=== PATIENT | male | born 1955 | race American Indian/Alaskan Native ===

== ENCOUNTER 2018-09-25 02:59 | Emergency (ER) | payer OTHER, SELFPAY ==
[2018-09-25 03:53] VITALS: BP 182/110
--- NOTE | 2018-09-25 05:14 | Emergency Department Report ---
ED Male HPI - General Chief complaint: Urogenital-Male Stated complaint: CAN'T PEE Time Seen by Provider: 09/25/18 04:05 Source: patient Mode of arrival: Ambulatory Limitations: No Limitations - History of Present Illness Initial comments: Mr. Hernández is a 63-year-old male who presents with dysuria and difficulty with urination for the past day. He is able to dribble urine. However when the urine comes out, he has pain at the tip of his penis. Also has bloody urine. Currently taking ciprofloxacin. Has followed up with urologist Dr. Garrett. He has had estelle catheter removed for several weeks. He kindly request that we replace the catheter. MD Complaint: dysuria, other (difficulty with urination) -: Gradual, days(s) (1) Location: penis Radiation: none Severity: moderate Quality: burning Consistency: constant Improves with: none Worsens with: none new medication urinary retention, blood in urine, dysuria - Related Data Previous Rx's Medication Instructions Recorded Last Taken Type Lisinopril [Zestril TAB] 20 mg PO BID #60 tablet 07/04/14 Unknown Rx Metoprolol [Lopressor TAB] 12.5 mg PO BID #30 tablet 07/04/14 Unknown Rx HYDROcodone/APAP 5-325 [Denair 1 each PO Q6HR PRN #7 tablet 07/05/14 Unknown Rx 5/325] Lisinopril/Hydrochlorothiazide 1 each PO QDAY #30 tablet 07/05/14 Unknown Rx [Zestoretic 10-12.5 mg] Tamsulosin HCl [Flomax] 0.4 mg PO QDAY #15 cap.er.24h 06/24/18 Unknown Rx Ciprofloxacin HCl [Cipro] 500 mg PO BID #14 tablet 06/27/18 Unknown Rx HYDROcodone/APAP 5-325 [Denair 1 each PO Q6HR PRN #15 tablet 06/27/18 Unknown Rx 5/325] Phenazopyridine [Pyridium] 100 mg PO TID 2 Days tab 06/27/18 Unknown Rx Cephalexin [Keflex] 500 mg PO QID 10 Days #40 capsule 09/25/18 Unknown Rx Phenazopyridine [Pyridium] 200 mg PO TID 2 Days #6 tab 09/25/18 Unknown Rx Allergies Allergy/AdvReac Type Severity Reaction Status Date / Time No Known Allergies Allergy Unverified 07/03/14 05:36 ED Review of Systems ROS: Stated complaint: CAN'T PEE Other details as noted in HPI Comment: All other systems reviewed and negative Constitutional: denies: fever, malaise Respiratory: denies: cough Cardiovascular: denies: chest pain Gastrointestinal: denies: abdominal pain, nausea, vomiting Genitourinary: urgency, dysuria, frequency, hematuria ED Past Medical Hx - Past Medical History Previous Medical History?: Yes Hx Hypertension: Yes Hx Congestive Heart Failure: No Hx Diabetes: No Hx Asthma: No Hx COPD: No Additional medical history: HEPATITIS C, Enlarged prostate - Surgical History Past Surgical History?: No Hx Coronary Stent: No - Social History Smoking Status: Current Every Day Smoker Substance Use Type: Alcohol - Medications Home Medications: Home Medications Medication Instructions Recorded Confirmed Last Taken Type Lisinopril [Zestril TAB] 20 mg PO BID #60 tablet 07/04/14 Unknown Rx Metoprolol [Lopressor TAB] 12.5 mg PO BID #30 tablet 07/04/14 Unknown Rx HYDROcodone/APAP 5-325 [Denair 1 each PO Q6HR PRN #7 tablet 07/05/14 Unknown Rx 5/325] Lisinopril/Hydrochlorothiazide 1 each PO QDAY #30 tablet 07/05/14 Unknown Rx [Zestoretic 10-12.5 mg] Tamsulosin HCl [Flomax] 0.4 mg PO QDAY #15 cap.er.24h 06/24/18 Unknown Rx Ciprofloxacin HCl [Cipro] 500 mg PO BID #14 tablet 06/27/18 Unknown Rx HYDROcodone/APAP 5-325 [Denair 1 each PO Q6HR PRN #15 tablet 06/27/18 Unknown Rx 5/325] Phenazopyridine [Pyridium] 100 mg PO TID 2 Days tab 06/27/18 Unknown Rx Cephalexin [Keflex] 500 mg PO QID 10 Days #40 capsule 09/25/18 Unknown Rx Phenazopyridine [Pyridium] 200 mg PO TID 2 Days #6 tab 09/25/18 Unknown Rx ED Physical Exam - General Limitations: No Limitations General appearance: alert, in no apparent distress, other (sitting comfortably, no acute distress) - Head Head exam: Present: atraumatic, normocephalic - Eye Eye exam: Present: normal appearance - ENT ENT exam: Present: mucous membranes moist - Neck Neck exam: Present: normal inspection - Respiratory Respiratory exam: Present: normal lung sounds bilaterally. Absent: respiratory distress, wheezes, rales, rhonchi - Cardiovascular Cardiovascular Exam: Present: regular rate, normal rhythm, normal heart sounds. Absent: systolic murmur, diastolic murmur, rubs, gallop - GI/Abdominal GI/Abdominal exam: Present: soft, normal bowel sounds. Absent: distended, tenderness, guarding, rebound - Rectal Rectal exam: Present: deferred - Extremities Exam Extremities exam: Present: normal inspection - Back Exam Back exam: Present: normal inspection - Neurological Exam Neurological exam: Present: alert, oriented X3 - Psychiatric Psychiatric exam: Present: normal affect, normal mood - Skin Skin exam: Present: warm, dry, intact, normal color. Absent: rash ED Course Vital Signs 09/25/18 03:20 Temperature 98 F Pulse Rate 82 Respiratory 18 Rate Blood Pressure 182/110 O2 Sat by Pulse 99 Oximetry - Catheter Insertion (Urinary) Indications: to alleviate urinary retention Prophylactic Antibiotics Given: No Bladder Scan/US before Catherization: No Preparation: Providone-Iodine Type of Catheter Inserted: Gomez Catheter [place] Size: 16 Topical Anesthesia Used: No Patient Tolerated Procedure: no complications Complications: none Additional Comments: I was able to bypass stricture at distal penis. I easily inserted catheter without any urine flow. I was unable to easily inflate balloon. I removed gomez catheter. On exam, no suprapubic distention or tenderness. ED Medical Decision Making - Medical Decision Making Mr. Hernández presents with dysuria and frequent urination. He has a sensation that he is not completely emptying his bladder. He has been compliant with Flomax therapy. I suspect urinary tract infection. No evidence of acute urinary retention. No evidence of sepsis. With insertion of Gomez cath, no urine flow achieved. I prescribed cephalexin for the next 10 days. Encouraged follow-up with Dr. Garrett. Also prescribed Pyridium Critical care attestation.: If time is entered above; I have spent that time in minutes in the direct care of this critically ill patient, excluding procedure time. ED Disposition Clinical Impression: Dysuria, Frequent urination Disposition: TO HOME OR SELFCARE Is pt being admited?: No Does the pt Need Aspirin: No Condition: Stable Instructions: Dysuria (ED) Prescriptions: Cephalexin [Keflex] 500 mg PO QID 10 Days #40 capsule Phenazopyridine [Pyridium] 200 mg PO TID 2 Days #6 tab Referrals: CAROLINE GARRETT MD [Staff Physician] - 3-5 Days
[2018-09-25] MEDS ORDERED: KEFLEX PO ONE (05:36)
[2018-09-25] MEDS ORDERED: PYRIDIUM PO ONE (05:36)
== END 2018-09-25 05:30 | disposition home or self-care (01) ==
LOC: ED 02:59
DX: R30.0 Dysuria (principal); R35.0 Frequency of micturition
CPT/HCPCS: 51702

== ENCOUNTER 2018-09-25 15:06 | Emergency (ER) | payer OTHER, SELFPAY ==
[2018-09-25] MEDS ORDERED: CATAPRES PO ONE (16:54)
--- NOTE | 2018-09-25 16:57 | Emergency Department Report ---
ED Male HPI - General Chief complaint: Urogenital-Male Stated complaint: GROIN/ENLARGED PROSTATE/URINARY RETENTION Time Seen by Provider: 09/25/18 16:20 Source: patient Mode of arrival: Ambulatory Limitations: No Limitations - History of Present Illness Initial comments: Patient is a 63-year-old male that presents emergency room with complaints of lo wer abdominal pain and urinary retention. Patient states she hasn't pieces to p.m. Patient states all the symptoms started at 2 PM. Patient states pain is 10 out of 10. Patient states it's better with rest and worse with movement and palpation. Patient states if it was so bad and called EMS to bring him to the hospital. Patient states his seen yesterday for urinary symptoms and diagnosed with UTI and placed on antibiotics, Pyridium and Flomax. Patient states he is supposed be on blood pressure medications but he stopped them 2 years ago due to the fact he was taking garlic tabs his blood pressure appeared to be control. Patient states his doctor nonstop but he stopped them on his own. MD Complaint: groin pain, other -: Sudden Location: abdomen Severity: severe Severity scale (0 -10): 10 Quality: sharp, stabbing Improves with: rest Worsens with: palpation, movement urinary retention. denies: discharge, swelling, mass, rash, blood in urine, dysuria, fever, nausea/vomiting, incontinence - Related Data Previous Rx's Medication Instructions Recorded Last Taken Type Lisinopril [Zestril TAB] 20 mg PO BID #60 tablet 07/04/14 Unknown Rx Metoprolol [Lopressor TAB] 12.5 mg PO BID #30 tablet 07/04/14 Unknown Rx HYDROcodone/APAP 5-325 [Mendham 1 each PO Q6HR PRN #7 tablet 07/05/14 Unknown Rx 5/325] Lisinopril/Hydrochlorothiazide 1 each PO QDAY #30 tablet 07/05/14 Unknown Rx [Zestoretic 10-12.5 mg] Tamsulosin HCl [Flomax] 0.4 mg PO QDAY #15 cap.er.24h 06/24/18 Unknown Rx Ciprofloxacin HCl [Cipro] 500 mg PO BID #14 tablet 06/27/18 Unknown Rx HYDROcodone/APAP 5-325 [[place]endham 1 each PO Q6HR PRN #15 tablet 06/27/18 Unknown Rx 5/325] Phenazopyridine [Pyridium] 100 mg PO TID 2 Days tab 06/27/18 Unknown Rx Cephalexin [Keflex] 500 mg PO QID 10 Days #40 capsule 09/25/18 Unknown Rx Phenazopyridine [Pyridium] 200 mg PO TID 2 Days #6 tab 09/25/18 Unknown Rx amLODIPine [Norvasc] 10 mg PO DAILY 20 Days #20 tab 09/25/18 Unknown Rx Allergies Allergy/AdvReac Type Severity Reaction Status Date / Time No Known Allergies Allergy Unverified 07/03/14 05:36 ED Review of Systems ROS: Stated complaint: GROIN/ENLARGED PROSTATE/URINARY RETENTION Other details as noted in HPI Constitutional: denies: chills, fever Eyes: denies: eye pain, eye discharge, vision change ENT: denies: ear pain, throat pain Respiratory: denies: cough, shortness of breath, wheezing Cardiovascular: denies: chest pain, palpitations Endocrine: no symptoms reported Gastrointestinal: abdominal pain. denies: nausea, diarrhea Genitourinary: denies: urgency, dysuria Musculoskeletal: denies: back pain, joint swelling, arthralgia Skin: denies: rash, lesions Neurological: denies: headache, weakness, paresthesias Psychiatric: denies: anxiety, depression Hematological/Lymphatic: denies: easy bleeding, easy bruising ED Past Medical Hx - Past Medical History Previous Medical History?: Yes Hx Hypertension: Yes Hx Congestive Heart Failure: No Hx Diabetes: No Hx Asthma: No Hx COPD: No Additional medical history: HEPATITIS C, Enlarged prostate - Surgical History Past Surgical History?: No Hx Coronary Stent: No - Family History Family history: no significant - Social History Smoking Status: Current Every Day Smoker Substance Use Type: None - Medications Home Medications: Home Medications Medication Instructions Recorded Confirmed Last Taken Type Lisinopril [Zestril TAB] 20 mg PO BID #60 tablet 07/04/14 Unknown Rx Metoprolol [Lopressor TAB] 12.5 mg PO BID #30 tablet 07/04/14 Unknown Rx HYDROcodone/APAP 5-325 [[place]endham 1 each PO Q6HR PRN #7 tablet 07/05/14 Unknown Rx 5/325] Lisinopril/Hydrochlorothiazide 1 each PO QDAY #30 tablet 07/05/14 Unknown Rx [Zestoretic 10-12.5 mg] Tamsulosin HCl [Flomax] 0.4 mg PO QDAY #15 cap.er.24h 06/24/18 Unknown Rx Ciprofloxacin HCl [Cipro] 500 mg PO BID #14 tablet 06/27/18 Unknown Rx HYDROcodone/APAP 5-325 [[place]ham 1 each PO Q6HR PRN #15 tablet 06/27/18 Unknown Rx 5/325] Phenazopyridine [Pyridium] 100 mg PO TID 2 Days tab 06/27/18 Unknown Rx Cephalexin [Keflex] 500 mg PO QID 10 Days #40 capsule 09/25/18 Unknown Rx Phenazopyridine [Pyridium] 200 mg PO TID 2 Days #6 tab 09/25/18 Unknown Rx amLODIPine [Norvasc] 10 mg PO DAILY 20 Days #20 tab 09/25/18 Unknown Rx ED Physical Exam - General Limitations: No Limitations General appearance: alert, in no apparent distress - Head Head exam: Present: atraumatic, normocephalic - Eye Eye exam: Present: normal appearance - ENT ENT exam: Present: mucous membranes moist - Neck Neck exam: Present: normal inspection - Respiratory Respiratory exam: Present: normal lung sounds bilaterally. Absent: respiratory distress - Cardiovascular Cardiovascular Exam: Present: regular rate, normal rhythm. Absent: systolic murmur, diastolic murmur, rubs, gallop - GI/Abdominal GI/Abdominal exam: Present: soft, normal bowel sounds - Rectal Rectal exam: Present: deferred - Extremities Exam Extremities exam: Present: normal inspection - Back Exam Back exam: Present: normal inspection - Neurological Exam Neurological exam: Present: alert, oriented X3 - Psychiatric Psychiatric exam: Present: normal affect, normal mood - Skin Skin exam: Present: warm, dry, intact, normal color. Absent: rash ED Course Vital Signs 09/25/18 09/25/18 09/25/18 15:18 17:16 18:45 Temperature 97.7 F 98.2 F Pulse Rate 94 H 75 75 Respiratory 23 16 Rate Blood Pressure 218/118 176/108 Blood Pressure 218/118 148/88 [Left] O2 Sat by Pulse 98 100 Oximetry - Reevaluation(s) Reevaluation #1: Initial evaluation done. Patient already had Rizvi placed by nurse. Patient states all of his symptoms have resolved. Patient's blood pressure is significantly high. Patient states he is not on any blood pressure medications. Patient states she stopped taking them due to his blood pressure being controlled with garlic tabs. 09/25/18 16:20 Patient's blood pressure has improved. Patient is stable for discharge. Patient will leave Rizvi in place until he sees urologist. Patient given discharge instructions. Patient given Rizvi care instructions. Patient was understanding of all discharge instructions. 09/25/18 17:59 ED Medical Decision Making - Medical Decision Making Patient is a 63-year-old male that presents emergency room for urinary retention. Patient fully placed which relieved his symptoms. Patient is already on antibiotics and Pyridium from yesterday's visit to the ER. Patient instructed to continue his medications. Patient will be started on Norvasc 10 mg for his blood pressure. Patient was found the ER to have extremely high blood pressure and was given clonidine 0.2 mg which brought it down to a more tolerable reading. Patient denies pain prior to discharge. Patient stable for discharge. Patient will be discharged home. Patient will be given prescriptions. - Differential Diagnosis urinary retention. UTI. Prostate infection. BPH Critical care attestation.: If time is entered above; I have spent that time in minutes in the direct care of this critically ill patient, excluding procedure time. ED Disposition Clinical Impression: Urinary retention, Dysuria, Malignant hypertension Hypertension Qualifiers: Hypertension type: essential hypertension Qualified Code(s): I10 - Essential (primary) hypertension Disposition: TO HOME OR SELFCARE Is pt being admited?: No Does the pt Need Aspirin: No Condition: Stable Instructions: Heart Healthy Diet (ED), How to Take a Blood Pressure (ED), Rizvi Catheter Placement and Care (ED), DASH Eating Plan (ED), Low Sodium Diet (ED), Hypertension (ED), Urinary Leg Bag (GEN) Additional Instructions: Patient to follow up with primary care in 2-3 days. Patient to follow up with urologist in 2-3 days. Patient to return to the ER if condition worsens. Patient take medications as directed. Patient to continue Keflex and Pyridium and complete courses. Patient to increase water. Patient take Tylenol or ibuprofen when necessary for pain. Patient leave Rizvi in place until cleared by urologist.. Prescriptions: amLODIPine [Norvasc] 10 mg PO DAILY 20 Days #20 tab Referrals: OSMIN MONSON MD [Primary Care Provider] - 2-3 Days CAROLINE OLIVER MD [Staff Physician] - 2-3 Days Time of Disposition: 18:02
[2018-09-25 19:11] VITALS: BP 148/88
== END 2018-09-25 18:45 | disposition home or self-care (01) ==
LOC: ED 15:06
DX: R33.9 Retention of urine, unspecified (principal); I10 Essential (primary) hypertension; F17.200 Nicotine dependence, unspecified, uncomplicated; Z86.19 Personal history of other infectious and parasitic diseases
CPT/HCPCS: 51702

== ENCOUNTER 2018-09-28 08:34 | Emergency (ER) | payer OTHER, SELFPAY ==
--- NOTE | 2018-09-28 09:09 | Emergency Department Report ---
ED Dysuria HPI - HPI Chief Complaint: Urogenital-Male Stated Complaint: CATHETER PAIN Time Seen by Provider: 09/28/18 09:04 Duration: 5 Days Severity: Mild Symptoms: Dysuria: No, Frequency: No, Suprapubic Pain: No, Flank Pain: No, Fever: No, Hematuria: No, Abdominal Pain: No, Previous UTI's: Yes Other History: Patient is a pleasant 63-year-old male who comes to the ER complaining of bleeding around his Rizvi catheter. He is concerned that it is the wrong size catheter. Patient has a catheter for acute urinary retention. It sounds like patient has had this off and on due to prostate issues. He is known to Dr. Garrett. ED Review of Systems ROS: Stated complaint: CATHETER PAIN Other details as noted in HPI Comment: All other systems reviewed and negative Constitutional: denies: see HPI Eyes: denies: eye pain ENT: denies: ear pain Respiratory: denies: see HPI Cardiovascular: denies: chest pain Endocrine: denies: flushing Gastrointestinal: denies: abdominal pain, nausea, vomiting Genitourinary: as per HPI, other (see HPI) Musculoskeletal: denies: back pain Skin: denies: rash Neurological: denies: headache Psychiatric: denies: anxiety Hematological/Lymphatic: denies: easy bleeding ED Past Medical Hx - Past Medical History Hx Hypertension: Yes Hx Congestive Heart Failure: No Hx Diabetes: No Hx Asthma: No Hx COPD: No Additional medical history: HEPATITIS C, Enlarged prostate - Surgical History Hx Coronary Stent: No - Social History Smoking Status: Current Every Day Smoker Substance Use Type: None - Medications Home Medications: Home Medications Medication Instructions Recorded Confirmed Last Taken Type Lisinopril [Zestril TAB] 20 mg PO BID #60 tablet 07/04/14 Unknown Rx Metoprolol [Lopressor TAB] 12.5 mg PO BID #30 tablet 07/04/14 Unknown Rx Lisinopril/Hydrochlorothiazide 1 each PO QDAY #30 tablet 07/05/14 Unknown Rx [Zestoretic 10-12.5 mg] Cephalexin [Keflex] 500 mg PO QID 10 Days #40 capsule 09/25/18 Unknown Rx amLODIPine [Norvasc] 10 mg PO DAILY 20 Days #20 tab 09/25/18 Unknown Rx Dysuria Exam - Exam General: Vital signs noted. No distress. Alert and acting appropriately. Exam: Yes Moist Mucous Membranes, No CVA Tenderness, No Abdominal Tenderness, No Rigidity or Guarding Exam: Patient is alert and oriented. No focal neuro deficit. S1 and S2. Lungs clear to auscultation. Abdomen soft nontender. The catheter is connected to the leg bag. There is no tubing connecting the catheter to the back. This is not an issue of size of catheter per se but it was connected improperly by whoever inserted it. ED Medical Decision Making - Medical Decision Making See exam findings of the catheter. Catheter connected properly by the nurse. Patient to follow-up with Dr. Garrett to have the Rizvi removed - Differential Diagnosis mechanical obstruction v catheter size issue Critical care attestation.: If time is entered above; I have spent that time in minutes in the direct care of this critically ill patient, excluding procedure time. ED Disposition Clinical Impression: Urinary retention, Hypertension Disposition: DC-01 TO HOME OR SELFCARE Is pt being admited?: No Does the pt Need Aspirin: No Condition: Stable Instructions: Hypertension (ED) Additional Instructions: you need to see urology to be sure it is ok to take this catheter out you mentioned prostate problems if we take this out too soon you will retain urine again and need catheter catheter care as instructed hydrate well with water Blood Pressure medicines as instructed Referrals: CAROLINE GARRETT MD [Primary Care Provider] - 3-5 Days Time of Disposition: 09:58
== END 2018-09-28 10:07 | disposition home or self-care (01) ==
LOC: ED 08:34
CPT/HCPCS: 99282

== ENCOUNTER 2018-10-12 05:47 | Observation (INO) | payer OTHER, SELFPAY ==
[2018-10-12] MEDS ORDERED: NACL BACTERIOSTATIC INFILTRATI ONE (06:16)
[2018-10-12] MEDS ORDERED: ANCEF/STERILE WATER 2 GM/20 ML IV NR (07:00)
[2018-10-12 07:03] LABS: Basophils # (Auto) 0.1 K/mm3 (0.0-0.1); Basophils % (Auto) 0.9 % (0.0-1.8); Eosinophils # (Auto) 0.1 K/mm3 (0.0-0.4); Eosinophils % (Auto) 1.8 % (0.0-4.3); Hemoglobin 16.2 gm/dl (11.8-15.2); Lymphocytes # (Auto) 2.3 K/mm3 (1.2-5.4); Lymphocytes % (Auto) 29.3 % (13.4-35.0); Mean Corpuscular HGB Conc 35 % (32-34); Mean Corpuscular Volume 88 fl (84-94); Monocytes # (Auto) 0.6 K/mm3 (0.0-0.8); Monocytes % (Auto) 7.5 % (0.0-7.3); Platelet Count 192 K/mm3 (140-440); Red Blood Count 5.21 M/mm3 (3.65-5.03); Red Cell Distribution Width 13.4 % (13.2-15.2)
[2018-10-12 07:13] LABS: INR 0.95 (0.87-1.13)
[2018-10-12] MEDS ORDERED: LACTATED RINGERS 1,000 ML IV SCH (07:17)
[2018-10-12] MEDS ORDERED: VERSED IV NR (07:17)
[2018-10-12] MEDS ORDERED: XYLOCAINE MPF 2% ONE (07:18)
[2018-10-12 07:19] LABS: Albumin 3.6 g/dL (3.9-5); BUN/Creatinine Ratio 17; Blood Urea Nitrogen 10 mg/dL (9-20); Calcium 8.7 mg/dL (8.4-10.2); Hemolysis Index 129
[2018-10-12] MEDS ORDERED: DIPRIVAN 10 MG/ML IV ONE (07:19)
[2018-10-12] MEDS ORDERED: SUBLIMAZE ONE ×3 (07:19→08:43)
--- NOTE | 2018-10-12 07:29 | Anesthesia Day of Surgery ---
Anesthesia Day of Surgery - Day of Surgery Patient Examined: Yes Patient H&P Reviewed: Yes Patient is NPO: Yes
[2018-10-12] MEDS ORDERED: NACL 0.9% IR ONE ×4 (07:33)
--- NOTE | 2018-10-12 07:33 | Anesthesia Consultation ---
Anesthesia Consult and Med Hx Date of service: 10/12/18 - Airway Anesthetic Teeth Evaluation: Poor ROM Head & Neck: Adequate Mental/Hyoid Distance: Adequate Mallampati Class: Class II Intubation Access Assessment: Probably Good - Cardiac Exam Cardiac Exam: RRR - Pre-Operative Health Status ASA Pre-Surgery Classification: ASA3 Proposed Anesthetic Plan: General - Pulmonary Hx Smoking: (1/2 PPD X 50 YRS) Hx Asthma: Yes (NO MEDS) COPD: No Hx Pneumonia: No Hx Sleep Apnea: No (SHENG PRE SCREEN HIGH RISK.) - Cardiovascular System Hx Hypertension: Yes (X 5 YRS- TAKES MEDS IRREGULAR) - Endocrine Hx End Stage Renal Disease: No Hx Liver Disease: Yes (Hep C) - Other Systems Hx Substance Use: Yes (OCC MARIJUANA) Hx Cancer: No
[2018-10-12 07:47] LABS: Alanine Aminotransferase 73 units/L (7-56)
[2018-10-12] MEDS ORDERED: ZOFRAN ONE (08:26)
[2018-10-12] MEDS ORDERED: DECADRON ONE (08:26)
[2018-10-12] MEDS ORDERED: NARCAN 0.4 MG/1 ML IV PRN (09:13)
[2018-10-12] MEDS ORDERED: AMBIEN PO PRN (09:13)
[2018-10-12] MEDS ORDERED: ZOFRAN IV PRN (09:13)
--- NOTE | 2018-10-12 09:13 | Short Stay Summary ---
Short Stay Documentation Date of service: 10/12/18 - History H&P: obtained from office - Allergies and Medications Current Medications: Allergies No Known Allergies Allergy (Verified 10/06/18 11:36) Home Medications Medication Instructions Recorded Confirmed Last Taken Type Tamsulosin HCl [Flomax] 0.4 mg PO DAILY 10/06/18 10/12/18 2 Weeks Ago History ~09/28/18 amLODIPine [Norvasc] 10 mg PO PRN PRN 10/06/18 10/12/18 10/12/18 03:00 History Active Medications Cefazolin Sodium (Ancef/Sterile Water 2 Gm/20 Ml) 2 gm IV PREOP NR Stop: 10/12/18 23:59 Hydromorphone HCl (Dilaudid) 0.5 mg IV Q10MIN PRN PRN Reason: Pain , Severe (7-10) Stop: 10/12/18 20:00 Lactated Ringer's (Lactated Ringers) 1,000 mls @ 100 mls/hr IV DIRECT ARUN Last Admin: 10/12/18 07:36 Dose: 100 mls/hr Documented by: Midazolam HCl (Versed) 2 mg IV ONCE NR Stop: 10/12/18 22:00 Last Admin: 10/12/18 07:37 Dose: 2 mg Documented by: - Brief post op/procedure progress note Date of procedure: 10/12/18 Pre-op diagnosis: BPH, RETENTION Post-op diagnosis: same Procedure: CYSTO, RPG, TURP Anesthesia: GETA Surgeon: CAROLINE OLIVER Estimated blood loss: minimal Pathology: list (PROSTATE CHIPS) Specimen disposition: to lab Condition: stable - Hospital course Hospital course: BACTRIM, NORCO, ULTRAM ON CHART irrgated clear home with gomez - Disposition Condition at discharge: Stable Disposition: DC-01 TO HOME OR SELFCARE Short Stay Discharge Plan Follow up with: [facility] KELLY NUNN MD [Referring] - 7 Days
[2018-10-12] MEDS ORDERED: NORVASC PO PRN (09:18)
[2018-10-12] MEDS ORDERED: APRESOLINE ONE (09:25)
[2018-10-12] MEDS: DILAUDID IV PRN ×3 (09:30→19:48)
--- NOTE | 2018-10-12 09:41 | Operative Report ---
PREOPERATIVE DIAGNOSES: Urinary retention, benign prostatic hypertrophy. POSTOPERATIVE DIAGNOSES: Urinary retention, benign prostatic hypertrophy. PROCEDURE: Cystoscopy, bilateral retrograde pyelograms, transurethral resection of the prostate. SURGEON: Errol Garrett MD ANESTHESIA: General. ESTIMATED BLOOD LOSS: Minimal. FLUIDS: Crystalloid. COMPLICATIONS: No complications. INDICATIONS: This 63-year-old gentleman presented to our office after presenting to the Emergency Room on multiple occasions with urinary retention, failed medical management with Flomax. Discussed treatment options. He agreed to proceed with surgical intervention. Risks, benefits, and complications were explained. The patient has a history of hypertension. The patient has a history of hepatitis that he told us the day of surgery. DESCRIPTION OF PROCEDURE: The patient was taken to the operative suite, placed in a supine position. After adequate general anesthesia, placed in a dorsal lithotomy position, prepped and draped in a sterile fashion. Pancystourethroscopy was performed with a 22-[place]izen [place] Storz cystoscope. No acute urethral abnormalities. His prostate displayed trilobar prostatic obstruction. His bladder, no tumors or stones were noted. Both ureteral orifices in normal position. Bilateral retrograde pyelograms were obtained with an 8 [place] Belcourt catheter and 8 mL of contrast. No filling defects or obstruction. Next, using a medium loop with cutting and coag on 200 and 120 transurethral resection of the prostate was performed. Median lobe was taken down followed by the left and right lateral lobes respectively. The verumontanum and external sphincter were uninjured as well as the ureteral orifices. Chips were evacuated out with the Ellik evacuator. Adequate hemostasis achieved. The patient tolerated the procedure well. Rectal exam was benign. A 22-[place] 3-way catheter to a Otto drip was left indwelling. He was extubated and taken to recovery room. He will be observed overnight and go home on [place], Ultram, and Bactrim. JOB# [id number] [facility]
[2018-10-12] MEDS ORDERED: NORMODYNE IV ONE ×2 (09:43→10:30)
[2018-10-12] MEDS ORDERED: APRESOLINE IV PRN (12:07)
[2018-10-12] MEDS: NACL 0.9% IR SCH ×2 (12:30→15:05)
[2018-10-12] MEDS ORDERED: NACL 0.9% 1,000 ML IR ONE ×2 (12:54→16:13)
[2018-10-12] MEDS: NACL 0.9% 1000 ML 1,000 ML IV SCH (13:25)
--- NOTE | 2018-10-12 14:53 | Consultation ---
History of Present Illness - Reason for Consult management of hypertension Requesting physician: CAROLINE OLIVER - History of Present Illness 63-year-old man who is status post TURP Medicine consulted for management of hypertension At this time the patient is not complaining of headache chest pain or shortness of breath , he's complaining of pain related to his surgery, he is having bleeding from the [place], currently getting Otto drip Past Medical History Hypertension, history of hepatitis C, enlarged prostate - Surgical History TURP - Social History Smoking Status: Current Every Day Smoker Substance Use Type: None - Medications Home Medications: Medications and Allergies Allergies Allergy/AdvReac Type Severity Reaction Status Date / Time No Known Allergies Allergy Verified 10/06/18 11:36 Home Medications Medication Instructions Recorded Confirmed Last Taken Type Tamsulosin HCl [Flomax] 0.4 mg PO DAILY 10/06/18 10/12/18 2 Weeks Ago History ~09/28/18 amLODIPine [Norvasc] 10 mg PO PRN PRN 10/06/18 10/12/18 10/12/18 03:00 History Active Meds: Active Medications Acetaminophen/Hydrocodone Bitart ([place] 5/325) 2 each PO Q4H PRN PRN Reason: Pain, Moderate (4-6) Amlodipine Besylate (Norvasc) 10 mg PO PRN PRN PRN Reason: Hypertension Cefazolin Sodium (Ancef/Sterile Water 2 Gm/20 Ml) 2 gm IV PREOP NR Stop: 10/12/18 23:59 Hydralazine HCl (Apresoline) 10 mg IV Q4HR PRN PRN Reason: BP >160/100 Hydromorphone HCl (Dilaudid) 0.5 mg IV Q10MIN PRN PRN Reason: Pain , Severe (7-10) Stop: 10/12/18 20:00 Last Admin: 10/12/18 10:15 Dose: 0.5 mg Documented by: Lactated Ringer's (Lactated Ringers) 1,000 mls @ 100 mls/hr IV DIRECT ARUN Last Admin: 10/12/18 07:36 Dose: 100 mls/hr Documented by: Cefazolin Sodium (Ancef/Ns 1 Gm/50 Ml) 1 gm in 50 mls @ 100 mls/hr IV Q8H ARUN; Protocol Stop: 10/12/18 22:29 Sodium Chloride (Nacl 0.9% 1000 Ml) 1,000 mls @ 100 mls/hr IV DIRECT ARUN Midazolam HCl (Versed) 2 mg IV ONCE NR Stop: 10/12/18 22:00 Last Admin: 10/12/18 07:37 Dose: 2 mg Documented by: Morphine Sulfate (Morphine) 2 mg IV Q4H PRN PRN Reason: Pain, Moderate (4-6) Naloxone HCl (Narcan 0.4 Mg/1 Ml) 0.1 mg IV Q2MIN PRN PRN Reason: Res Rate </= 8 or 02 SAT < 92% Ondansetron HCl (Zofran) 4 mg IV Q8H PRN PRN Reason: Nausea And Vomiting Sodium Chloride (Nacl 0.9%) 2,000 ml IR DIRECT ARUN Tamsulosin HCl (Flomax) 0.4 mg PO DAILY ARUN Zolpidem Tartrate (Ambien) 5 mg PO QHS PRN PRN Reason: Sleep Review of Systems All systems: negative Constitutional: no weight loss Ears, nose, mouth and throat: no deferred Cardiovascular: no chest pain Respiratory: no cough Gastrointestinal: no abdominal pain Genitourinary Male: no dysuria Rectal: no pain Musculoskeletal: no neck stiffness Integumentary: no deferred Neurological: no head injury Psychiatric: no anxiety Endocrine: no cold intolerance Hematologic/Lymphatic: no easy bruising Allergic/Immunologic: no urticaria Exam - Constitutional Vitals: Temp Pulse Resp BP Pulse Ox 98.0 F 74 20 146/92 100 10/12/18 10:55 10/12/18 10:55 10/12/18 10:55 10/12/18 10:55 10/12/18 10:55 General appearance: Present: no acute distress, well-nourished - EENT Eyes: Present: PERRL ENT: hearing intact, clear oral mucosa - Neck Neck: Present: supple, normal ROM - Respiratory Respiratory effort: normal Respiratory: bilateral: CTA - Cardiovascular Heart Sounds: Present: S1 & S2. Absent: rub, click - Extremities Extremities: pulses symmetrical, No edema Peripheral Pulses: within normal limits - Abdominal General gastrointestinal: Present: soft, non-tender, non-distended, normal bowel sounds Male genitourinary: Present: normal - Integumentary Integumentary: Present: clear, warm, dry - Musculoskeletal Musculoskeletal: gait normal, strength equal bilaterally - Psychiatric Psychiatric: appropriate mood/affect, intact judgment & insight - Neurologic Neurologic: CNII-XII intact, moves all extremities Results - Labs CBC & Chem 7: 10/13/18 12:02 10/13/18 03:28 Labs: Abnormal lab results 10/12/18 10/12/18 Range/Units 06:40 06:40 RBC 5.21 H (3.65-5.03) M/mm3 Hgb 16.2 H (11.8-15.2) gm/dl Hct 46.0 H (35.5-45.6) % MCHC 35 H (32-34) % [place] % (Auto) 7.5 H (0.0-7.3) % Creatinine 0.6 L (0.8-1.5) mg/dL Glucose 108 H (75-100) mg/dL AST 72 H (5-40) units/L ALT 73 H (7-56) units/L Albumin 3.6 L (3.9-5) g/dL Assessment and Plan 63-year-old man admitted status post TURP, medicine consulted for management of hypertension Optimize blood pressure medications, some of the elevated blood pressure may be partly due to pain Postsurgical management per urology Diagnosis Enlarged prostate, status post TURP Hypertension with hypertensive urgency
--- NOTE | 2018-10-12 17:06 | Post Anesthesia Evaluation ---
- Post Anesthesia Evaluation Patient Participated: Yes Airway Patent: Yes Stable Respiratory Function: Yes Nausea/Vomiting: No Temp > 96.8F: Yes Pain Manageable: Yes Adequeate Hydration: Yes Anesthesia Complications: No
[2018-10-12] MEDS ORDERED: NACL 0.9% IR PRN (17:20)
[2018-10-12] MEDS: ANCEF/NS 1 GM/50 ML 1 GM/50 ML BAG IV SCH (18:00)
[2018-10-12] MEDS: MORPHINE IV PRN ×2 (18:03→23:11)
--- NOTE | 2018-10-12 20:45 | Event Note ---
Date: 10/12/18 TURP 9am today. called 7:30pm-----gomez not draining new 22F 3 placed by me - irrigated afew clots put on traction also
[2018-10-13] MEDS: NORCO 5/325 PO PRN ×2 (00:16→22:51)
[2018-10-13] MEDS: DITROPAN PO SCH ×4 (00:25→19:19)
[2018-10-13 01:04] LABS: Hematocrit 42.4 % (35.5-45.6); Hemoglobin 14.3 gm/dl (11.8-15.2); Mean Corpuscular HGB Conc 34 % (32-34); Mean Corpuscular Volume 91 fl (84-94); Platelet Count 212 K/mm3 (140-440); Red Blood Count 4.68 M/mm3 (3.65-5.03); Red Cell Distribution Width 13.2 % (13.2-15.2)
[2018-10-13] MEDS: MORPHINE IV PRN ×2 (01:58→06:25)
--- NOTE | 2018-10-13 02:38 | Ultrasound Report ---
FINAL REPORT PROCEDURE: US BLADDER RESIDUAL TECHNIQUE: Real-time sonography in multiple planes of the bladder was performed with image documenta tion. CPT 20789 HISTORY: bladder retention COMPARISON: No prior studies are available for comparison. FINDINGS: Urinary bladder volume is 490 cc. Patient was unable to void. There is a soft tissue mass in the urin joel bladder measuring 8 x 8 x 7 centimeters. IMPRESSION: Urinary bladder volume is 490 cc. Patient was unable to void. There is a soft tissue mass in the urin joel bladder measuring 8 x 8 x 7 centimeters.
[2018-10-13 04:36] LABS: BUN/Creatinine Ratio 18; Blood Urea Nitrogen 16 mg/dL (9-20); Calcium 8.7 mg/dL (8.4-10.2); Hemolysis Index 1
[2018-10-13 04:41] LABS: Hematocrit 43.3 % (35.5-45.6); Hemoglobin 14.5 gm/dl (11.8-15.2); Mean Corpuscular HGB Conc 33 % (32-34); Mean Corpuscular Volume 90 fl (84-94); Platelet Count 213 K/mm3 (140-440); Red Cell Distribution Width 13.6 % (13.2-15.2)
[2018-10-13 05:16] LABS: Band Neutrophils # (Manual) 0.3 K/mm3; Basophils % (Manual) 0 % (0.0-1.8); Eosinophils % (Manual) 0 % (0.0-4.3); Platelet Estimate Consistent w Auto; Total Cells Counted 100
[2018-10-13] MEDS: ANCEF/NS 1 GM/50 ML 1 GM/50 ML BAG IV SCH (05:41)
--- NOTE | 2018-10-13 07:43 | Fluoroscopy Report ---
FLUOROSCOPY RETROGRADE UROGRAPHY: HISTORY: Urinary retention. FINDINGS: Fluoroscopy was provided by radiology during retrograde urography by the urologist. 6 fluoroscopic images were captured. There is adequate filling of the ureters and intrarenal collecting systems with no filling defects or anatomic abnormalities identified. Please correlate with the procedural report if needed. IMPRESSION: Retrograde pyelograms within normal limits.
--- NOTE | 2018-10-13 09:13 | Progress Note ---
Subjective Date of service: 10/13/18 Interval history: TURP 9am 10-12-18------ called to see pt - 8pm last nigh new 22F 3 placed by me - irrigated afew clots put on traction also early this am Dr. Izquierdo irrigated gomez to clear clots A/P S/P TURP uncontrolled HTN - pain?/ non compliant with meds control BP - reduce bleeding continue to obs Objective - Constitutional Vitals: Vital Signs - 12hr 10/12/18 10/12/18 10/12/18 21:40 22:00 23:11 Temperature 97.4 F L Pulse Rate 116 H Respiratory 20 17 Rate Respiratory 17 Rate [Lower Anterior Abdomen] Blood Pressure Blood Pressure 178/105 [Left] O2 Sat by Pulse 99 97 Oximetry 10/12/18 10/13/18 10/13/18 23:41 00:46 00:59 Temperature Pulse Rate 104 H 106 H Respiratory 17 1 L Rate Respiratory Rate [Lower Anterior Abdomen] Blood Pressure 187/111 Blood Pressure 171/108 [Left] O2 Sat by Pulse 99 100 Oximetry 10/13/18 10/13/18 10/13/18 01:01 01:05 01:16 Temperature 93.7 F L 97.5 F L Pulse Rate 112 H Respiratory 22 17 Rate Respiratory Rate [Lower Anterior Abdomen] Blood Pressure Blood Pressure 187/111 [Left] O2 Sat by Pulse 93 Oximetry 10/13/18 10/13/18 10/13/18 01:58 02:03 02:28 Temperature Pulse Rate 104 H Respiratory 17 17 Rate Respiratory Rate [Lower Anterior Abdomen] Blood Pressure 171/108 Blood Pressure [Left] O2 Sat by Pulse Oximetry 10/13/18 10/13/18 10/13/18 04:48 06:25 07:51 Temperature 98.0 F 97.5 F L Pulse Rate 100 H 70 Respiratory 17 17 18 Rate Respiratory Rate [Lower Anterior Abdomen] Blood Pressure 174/107 141/90 Blood Pressure [Left] O2 Sat by Pulse 99 97 Oximetry - Labs CBC & Chem 7: 10/13/18 03:28 10/13/18 03:28 Labs: Abnormal lab results 10/13/18 10/13/18 10/13/18 Range/Units 00:53 03:28 03:28 WBC 17.3 H 17.2 H (4.5-11.0) K/mm3 Seg Neuts % (Manual) 87.0 H (40.0-70.0) % Lymphocytes % (Manual) 10.0 L (13.4-35.0) % Seg Neutrophils # Man 15.0 H (1.8-7.7) K/mm3 Chloride 97.2 L (98-107) mmol/L Glucose 182 H (75-100) mg/dL Medications & Allergies - Medications Allergies/Adverse Reactions: Allergies No Known Allergies Allergy (Verified 10/06/18 11:36) Home Medications: Home Medications Medication Instructions Recorded Confirmed Last Taken Type Tamsulosin HCl [Flomax] 0.4 mg PO DAILY 10/06/18 10/12/18 2 Weeks Ago History ~09/28/18 amLODIPine [Norvasc] 10 mg PO PRN PRN 10/06/18 10/12/18 10/12/18 03:00 History Active Medications: Generic Name Dose Route Start Last Admin Trade Name Freq PRN Reason Stop Dose Admin Acetaminophen/Hydrocodone Bitart 2 each 10/12/18 09:13 10/13/18 00:16 [place] 5/325 PO 2 each Q4H PRN Administration Pain, Moderate (4-6) Amlodipine Besylate 10 mg 10/12/18 09:18 10/13/18 02:03 Norvasc PO 10 mg PRN PRN Administration Hypertension Hydralazine HCl 10 mg 10/12/18 12:07 Apresoline IV Q4HR PRN BP >160/100 Lactated Ringer's 1,000 mls @ 100 mls/hr 10/12/18 07:17 10/12/18 07:36 Lactated Ringers IV 100 mls/hr DIRECT ARUN Administration Sodium Chloride 1,000 mls @ 100 mls/hr 10/12/18 10:00 10/12/18 13:25 Nacl 0.9% 1000 Ml IV 100 mls/hr DIRECT ARUN Administration Levofloxacin/Dextrose 500 mg in 100 mls @ 100 mls/hr 10/13/18 10:00 Levaquin 500mg/100ml IV Q24HR ARUN Protocol Morphine Sulfate 2 mg 10/12/18 09:13 10/13/18 06:25 Morphine IV 2 mg Q4H PRN Administration Pain, Moderate (4-6) Naloxone HCl 0.1 mg 10/12/18 09:13 Narcan 0.4 Mg/1 Ml IV Q2MIN PRN Res Rate </= 8 or 02 SAT < 92% Ondansetron HCl 4 mg 10/12/18 09:13 Zofran IV Q8H PRN Nausea And Vomiting Oxybutynin Chloride 5 mg 10/12/18 23:58 10/13/18 00:25 Ditropan PO 5 mg TID ARUN Administration Sodium Chloride 2,000 ml 10/12/18 14:00 10/12/18 15:05 Nacl 0.9% IR 2,000 ml DIRECT ARUN Administration Sodium Chloride 1,000 ml 10/12/18 17:20 Nacl 0.9% IR PRN PRN Bleeding Tamsulosin HCl 0.4 mg 10/13/18 10:00 Flomax PO DAILY ARUN Zolpidem Tartrate 5 mg 10/12/18 09:13 10/12/18 23:39 Ambien PO 5 mg QHS PRN Administration Sleep
[2018-10-13] MEDS: NACL 0.9% 1000 ML 1,000 ML IV SCH ×2 (09:25→19:18)
[2018-10-13] MEDS ORDERED: FLOMAX PO SCH (10:00)
[2018-10-13] MEDS ORDERED: LEVAQUIN 500MG/100ML 500 MG/100 ML BAG IV SCH (11:00)
--- NOTE | 2018-10-13 12:01 | Event Note ---
Date: 10/13/18 US w/ clots and some dist H/H pre op and early am approx stable changed gomez 2-way 22 Irrigate clots
[2018-10-13 12:23] LABS: Hematocrit 38.7 % (35.5-45.6); Hemoglobin 12.9 gm/dl (11.8-15.2); Mean Corpuscular HGB Conc 34 % (32-34); Mean Corpuscular Volume 90 fl (84-94); Platelet Count 176 K/mm3 (140-440); Red Cell Distribution Width 13.2 % (13.2-15.2)
--- NOTE | 2018-10-13 12:40 | Progress Note ---
Assessment and Plan Assessment and plan: 63-year-old man admitted status post TURP, medicine consulted for management of hypertension Optimize blood pressure medications, some of the elevated blood pressure may be partly due to pain Postsurgical management per urology Diagnosis Enlarged prostate, status post TURP Hypertension with hypertensive urgency History Interval history: Review of systems Constitutional: No fevers, no malaise, no joint pains CVS: No chest pain, no orthopnea, no dyspnea on exertion, no pedal edema GI: No abdominal pain, no diarrhea, no vomiting, no constipation Respiratory: No shortness of breath, no wheezing, no coughing Hospitalist Physical - Physical exam Narrative exam: General.: Appears well, no distress, nontoxic HEENT: Moist mucous membranes, extraocular muscles intact, no lymphadenopathy Neck: supple Cardiac: S1-S2 heard Lungs: clear to auscultation bilaterally Abdomen: soft , nontender, nondistended, bowel sounds positive Extremities: no edema clubbing or cyanosis Skin: no rash or lesions Neurologic: no gross focal deficits Psych: calm, and cooperative - Constitutional Vitals: Temp Pulse Resp BP Pulse Ox 97.3 F L 90 18 149/79 99 10/13/18 11:40 10/13/18 11:40 10/13/18 11:40 10/13/18 11:40 10/13/18 11:40 Results - Labs CBC & Chem 7: 10/13/18 12:02 10/13/18 03:28 Labs: Laboratory Last Values WBC 18.0 K/mm3 (4.5-11.0) H 10/13/18 12:02 RBC 4.30 M/mm3 (3.65-5.03) 10/13/18 12:02 Hgb 12.9 gm/dl (11.8-15.2) 10/13/18 12:02 Hct 38.7 % (35.5-45.6) 10/13/18 12:02 MCV 90 fl (84-94) 10/13/18 12:02 MCH 30 pg (28-32) 10/13/18 12:02 MCHC 34 % (32-34) 10/13/18 12:02 RDW 13.2 % (13.2-15.2) 10/13/18 12:02 Plt Count 176 K/mm3 (140-440) 10/13/18 12:02 Lymph % (Auto) [employer] 10/13/18 03:28 [place] % (Auto) [employer] 10/13/18 03:28 Eos % (Auto) [employer] 10/13/18 03:28 Baso % (Auto) [employer] 10/13/18 03:28 Lymph # [employer] 10/13/18 03:28 [place] # [employer] 10/13/18 03:28 Eos # [employer] 10/13/18 03:28 Baso # [employer] 10/13/18 03:28 Add Manual Diff Complete 10/13/18 03:28 Total Counted 100 10/13/18 03:28 Seg Neutrophils % [employer] 10/13/18 03:28 Seg Neuts % (Manual) 87.0 % (40.0-70.0) H 10/13/18 03:28 Band Neutrophils % 2.0 % 10/13/18 03:28 Lymphocytes % (Manual) 10.0 % (13.4-35.0) L 10/13/18 03:28 Reactive Lymphs % (Man) 0 % 10/13/18 03:28 Monocytes % (Manual) 1.0 % (0.0-7.3) 10/13/18 03:28 Eosinophils % (Manual) 0 % (0.0-4.3) 10/13/18 03:28 Basophils % (Manual) 0 % (0.0-1.8) 10/13/18 03:28 Metamyelocytes % 0 % 10/13/18 03:28 Myelocytes % 0 % 10/13/18 03:28 Promyelocytes % 0 % 10/13/18 03:28 Blast Cells % 0 % 10/13/18 03:28 Nucleated RBC % Not Reportable 10/13/18 03:28 Seg Neutrophils # [employer] 10/13/18 03:28 Seg Neutrophils # Man 15.0 K/mm3 (1.8-7.7) H 10/13/18 03:28 Band Neutrophils # 0.3 K/mm3 10/13/18 03:28 Lymphocytes # (Manual) 1.7 K/mm3 (1.2-5.4) 10/13/18 03:28 Abs React Lymphs (Man) 0.0 K/mm3 10/13/18 03:28 Monocytes # (Manual) 0.2 K/mm3 (0.0-0.8) 10/13/18 03:28 Eosinophils # (Manual) 0.0 K/mm3 (0.0-0.4) 10/13/18 03:28 Basophils # (Manual) 0.0 K/mm3 (0.0-0.1) 10/13/18 03:28 Metamyelocytes # 0.0 K/mm3 10/13/18 03:28 Myelocytes # 0.0 K/mm3 10/13/18 03:28 Promyelocytes # 0.0 K/mm3 10/13/18 03:28 Blast Cells # 0.0 K/mm3 10/13/18 03:28 WBC Morphology Not Reportable 10/13/18 03:28 Hypersegmented Neuts Not Reportable 10/13/18 03:28 Hyposegmented Neuts Not Reportable 10/13/18 03:28 Hypogranular Neuts Not Reportable 10/13/18 03:28 Smudge Cells Not Reportable 10/13/18 03:28 Toxic Granulation Not Reportable 10/13/18 03:28 Toxic Vacuolation Not Reportable 10/13/18 03:28 Dohle Bodies Not Reportable 10/13/18 03:28 Pelger-Huet Anomaly Not Reportable 10/13/18 03:28 [place] Rods Not Reportable 10/13/18 03:28 Platelet Estimate Consistent w auto 10/13/18 03:28 Clumped Platelets Not Reportable 10/13/18 03:28 Plt Clumps, EDTA Not Reportable 10/13/18 03:28 Large Platelets Not Reportable 10/13/18 03:28 Giant Platelets Not Reportable 10/13/18 03:28 Platelet Satelliting Not Reportable 10/13/18 03:28 Plt Morphology Comment Not Reportable 10/13/18 03:28 RBC Morphology Not Reportable 10/13/18 03:28 Dimorphic RBCs Not Reportable 10/13/18 03:28 Polychromasia Not Reportable 10/13/18 03:28 Hypochromasia Not Reportable 10/13/18 03:28 Poikilocytosis Not Reportable 10/13/18 03:28 Anisocytosis Not Reportable 10/13/18 03:28 Microcytosis Not Reportable 10/13/18 03:28 Macrocytosis Not Reportable 10/13/18 03:28 Spherocytes Not Reportable 10/13/18 03:28 Pappenheimer Bodies Not Reportable 10/13/18 03:28 Sickle Cells Not Reportable 10/13/18 03:28 Target Cells Not Reportable 10/13/18 03:28 Tear Drop Cells Not Reportable 10/13/18 03:28 Ovalocytes Not Reportable 10/13/18 03:28 Helmet Cells Not Reportable 10/13/18 03:28 [place] Bodies Not Reportable 10/13/18 03:28 [place] Rings Not Reportable 10/13/18 03:28 Krunal Cells Not Reportable 10/13/18 03:28 Bite Cells Not Reportable 10/13/18 03:28 Crenated Cell Not Reportable 10/13/18 03:28 Elliptocytes Not Reportable 10/13/18 03:28 Acanthocytes (Spur) Not Reportable 10/13/18 03:28 Rouleaux Not Reportable 10/13/18 03:28 Hemoglobin C Crystals Not Reportable 10/13/18 03:28 Schistocytes Not Reportable 10/13/18 03:28 Malaria parasites Not Reportable 10/13/18 03:28 Catrachito Bodies Not Reportable 10/13/18 03:28 Hem Pathologist Commnt No 10/13/18 03:28 PT 13.3 Sec. (12.2-14.9) 10/12/18 06:40 INR 0.95 (0.87-1.13) 10/12/18 06:40 APTT 27.0 Sec. (24.2-36.6) 10/12/18 06:40 Sodium 137 mmol/L (137-145) 10/13/18 03:28 Potassium 4.0 mmol/L (3.6-5.0) 10/13/18 03:28 Chloride 97.2 mmol/L (98-107) L 10/13/18 03:28 Carbon Dioxide 22 mmol/L (22-30) 10/13/18 03:28 Anion Gap 22 mmol/L 10/13/18 03:28 BUN 16 mg/dL (9-20) 10/13/18 03:28 Creatinine 0.9 mg/dL (0.8-1.5) 10/13/18 03:28 Estimated GFR > 60 ml/min 10/13/18 03:28 BUN/Creatinine Ratio 18 % 10/13/18 03:28 Glucose 182 mg/dL (75-100) H 10/13/18 03:28 Calcium 8.7 mg/dL (8.4-10.2) 10/13/18 03:28 Total Bilirubin 0.60 mg/dL (0.1-1.2) 10/12/18 06:40 AST 72 units/L (5-40) H 10/12/18 06:40 ALT 73 units/L (7-56) H 10/12/18 06:40 Alkaline Phosphatase 79 units/L (35-129) 10/12/18 06:40 Total Protein 8.2 g/dL (6.3-8.2) 10/12/18 06:40 Albumin 3.6 g/dL (3.9-5) L 10/12/18 06:40 Albumin/Globulin Ratio 0.8 % 10/12/18 06:40 Blood Type O POSITIVE 10/12/18 06:40 Antibody Screen Negative 10/12/18 06:40
[2018-10-13 13:10] LABS: Hepatitis B Surface Antigen Non-Reactive (Negative); Hepatitis C Virus Antibody Reactive (NonReactive)
--- NOTE | 2018-10-13 19:27 | Event Note ---
Date: 10/13/18 5pm today pt feels better irrgated a few clots ok to go home with jason 6am tomorrow scripts on chart
[2018-10-13] MEDS: NACL 0.9% IR SCH ×5 (19:58→22:52)
[2018-10-13] MEDS ORDERED: DITROPAN PO SCH (23:56)
[2018-10-14] MEDS: NACL 0.9% IR SCH ×4 (01:08→03:22)
[2018-10-14 05:26] VITALS: BP 144/91
[2018-10-14] MEDS ORDERED: PROCARDIA XL PO SCH (10:00)
[2018-10-14] MEDS ORDERED: NORVASC PO SCH (10:00)
== END 2018-10-14 05:40 | disposition home or self-care (01) ==
LOC: OR 05:47 → 3B-SURG 09:13
PROVIDERS: ADMIT Urology; ATTEND Urology
DX: N40.1 Benign prostatic hyperplasia with lower urinary tract symptoms (principal); R33.8 Other retention of urine; I10 Essential (primary) hypertension; I16.0 Hypertensive urgency; F17.200 Nicotine dependence, unspecified, uncomplicated; Z71.3 Dietary counseling and surveillance
CPT/HCPCS: 36415; 52601; 74420; 76857; 80048; 80053; 80074; 85007; 85025; 85027; 85610; 85730; 86850; 86900; 86901; 88305; 88341; 88342; 88344; 96365; 96366; 96367; 96375; 96376; A4217; C1758; G0378; J0360; J0690; J1100; J1170; J1956; J2250; J2270; J2405; J2704; J3010; J7030; J7120; Q9967

== ENCOUNTER 2020-01-17 23:05 | Emergency (ER) | payer SELFPAY ==
[2020-01-18 00:39] LABS: Bacteria,Urine 4+ /HPF (Negative); Bilirubin,Urine NEG (Negative); Blood,Urine MOD (Negative); Color,Urine Yellow (Yellow); Protein,Urine <15 mg/dL mg/dL (Negative); Urobilinogen,Urine < 2.0 mg/dL (<2.0)
[2020-01-18] MEDS ORDERED: TAMSULOSIN 0.4 MG CAP PO ONE (01:00)
[2020-01-18] MEDS ORDERED: ACETAMINOPHEN 500 MG TAB PO ONE (01:20)
[2020-01-18] MEDS ORDERED: ACETAMINOPHEN 500 MG TAB ONE (01:20)
[2020-01-18] MEDS ORDERED: levoFLOXacin 500 MG TAB PO ONE (01:20)
--- NOTE | 2020-01-18 01:56 | Emergency Department Report ---
ED Male HPI - General Chief complaint: Urogenital-Male Stated complaint: UNABLE TO URINATE/LOWER ABDOMINAL PAIN Source: EMS Mode of arrival: Ambulatory Limitations: No Limitations - History of Present Illness Initial comments: Patient is a 64-year-old -[place] male with a history of hypertension and BPH and who presents to the ED with complaint of acute onset suprapubic pressure and pain, dysuria, urinary urgency and frequency and urinary retention for the last 4 days. Patient states that he can hardly void urine which sometimes only comes out as dribbles and stops. Patient states that he used to take Flomax daily but ran out of the medication about 6 months ago. Patient states that he has not been able to fill the prescription for Flomax since he ran out. Patient denies fever, chills, hematuria, testicular pain, nausea, vomiting, abdominal pain, diarrhea, traumatic injury, penile discharge or low back pain. MD Complaint: dysuria, other (urinary retention for 4 days) -: days(s) (4) Location: abdomen (suprapubic ) Radiation: none Severity: severe Severity scale (0 -10): 7 Quality: aching, burning Consistency: constant Improves with: none Worsens with: urination denies other symptoms, urinary retention - Related Data Sexually active: No Home Medications Medication Instructions Recorded Confirmed Last Taken Tamsulosin HCl [Flomax] 0.4 mg PO DAILY 10/06/18 10/12/18 2 Weeks Ago ~09/28/18 amLODIPine [Norvasc] 10 mg PO PRN PRN 10/06/18 10/12/18 10/12/18 03:00 Previous Rx's Medication Instructions Recorded Last Taken Type Ibuprofen [Motrin] 800 mg PO Q8HR PRN #20 tablet 01/18/20 Unknown Rx Tamsulosin [Flomax] 0.4 mg PO QDAY #30 cap 01/18/20 Unknown Rx levoFLOXacin [Levaquin TAB] 500 mg PO QDAY #10 tablet 01/18/20 Unknown Rx Allergies Allergy/AdvReac Type Severity Reaction Status Date / Time No Known Allergies Allergy Verified 10/06/18 11:36 ED Review of Systems ROS: Stated complaint: UNABLE TO URINATE/LOWER ABDOMINAL PAIN Other details as noted in HPI Constitutional: denies: chills, fever Eyes: denies: eye pain, eye discharge, vision change ENT: denies: ear pain, throat pain Respiratory: denies: cough, shortness of breath, wheezing Cardiovascular: denies: chest pain, palpitations Endocrine: no symptoms reported Gastrointestinal: denies: abdominal pain, nausea, diarrhea Genitourinary: urgency, dysuria, frequency, other (Urinary retention) Musculoskeletal: denies: back pain, joint swelling, arthralgia Skin: denies: rash, lesions Neurological: denies: headache, weakness, paresthesias Psychiatric: denies: anxiety, depression Hematological/Lymphatic: denies: easy bleeding, easy bruising ED Past Medical Hx - Past Medical History Previous Medical History?: Yes Hx Hypertension: Yes Hx Congestive Heart Failure: No Hx Diabetes: Yes (NO MEDS) Hx Liver Disease: Yes (Hep C) Hx Asthma: Yes Hx COPD: No Hx HIV: No Additional medical history: HEPATITIS C, Enlarged prostate - Surgical History Past Surgical History?: Yes Hx Coronary Stent: No Additional Surgical History: enlarged prostate - Social History Smoking Status: Current Every Day Smoker Substance Use Type: Alcohol, Marijuana - Medications Home Medications: Home Medications Medication Instructions Recorded Confirmed Last Taken Type Tamsulosin HCl [Flomax] 0.4 mg PO DAILY 10/06/18 10/12/18 2 Weeks Ago History ~09/28/18 amLODIPine [Norvasc] 10 mg PO PRN PRN 10/06/18 10/12/18 10/12/18 03:00 History Ibuprofen [Motrin] 800 mg PO Q8HR PRN #20 tablet 01/18/20 Unknown Rx Tamsulosin [Flomax] 0.4 mg PO QDAY #30 cap 01/18/20 Unknown Rx levoFLOXacin [Levaquin TAB] 500 mg PO QDAY #10 tablet 01/18/20 Unknown Rx ED Physical Exam - General Limitations: No Limitations General appearance: alert, in no apparent distress - Head Head exam: Present: atraumatic, normocephalic, normal inspection - Eye Eye exam: Present: normal appearance, PERRL, EOMI Pupils: Present: normal accommodation - ENT ENT exam: Present: normal exam, normal orophraynx, mucous membranes moist, TM's normal bilaterally, normal external ear exam - Neck Neck exam: Present: normal inspection, full ROM - Respiratory Respiratory exam: Present: normal lung sounds bilaterally. Absent: respiratory distress, wheezes, rales, chest wall tenderness - Cardiovascular Cardiovascular Exam: Present: regular rate, normal rhythm, normal heart sounds. Absent: bradycardia, systolic murmur, diastolic murmur, rubs, gallop - GI/Abdominal GI/Abdominal exam: Present: soft, normal bowel sounds. Absent: tenderness, guarding, rebound, hyperactive bowel sounds - exam: Present: normal inspection External exam: Present: normal external exam - Extremities Exam Extremities exam: Present: normal inspection, full ROM, normal capillary refill - Back Exam Back exam: Present: normal inspection, full ROM. Absent: tenderness, muscle spasm, paraspinal tenderness - Neurological Exam Neurological exam: Present: alert, oriented X3, CN II-XII intact, normal gait, reflexes normal - Psychiatric Psychiatric exam: Present: normal affect, normal mood - Skin Skin exam: Present: warm, dry, intact, normal color. Absent: rash ED Course Vital Signs 01/17/20 01/17/20 01/18/20 23:21 23:25 01:28 Temperature 97.8 F Pulse Rate 87 Respiratory 18 19 Rate Blood Pressure 184/100 [Right] O2 Sat by Pulse 99 Oximetry ED Medical Decision Making - Medical Decision Making This is a 64-year-old -[place] male with a history of hypertension and BPH and who presents to the ED with complaint of acute onset suprapubic pressure and pain, dysuria, urinary urgency and frequency and urinary retention for the last 4 days. Patient states that he can hardly void urine which sometimes only comes out as dribbles and stops. Patient states that he used to take Flomax daily but ran out of the medication about 6 months ago. Patient states that he has not been able to fill the prescription for Flomax since he ran out. In the ED, patient is alert and oriented x3 and is not in any distress with normal vital signs but anxious because of retention of the urine. Urinalysis shows significant urinary tract infection. Patient had an indwelling Rizvi catheter placed to release some of the pressure from his bladder and to drain the urine. Patient was treated in the ED with Flomax and also given Levaquin 500 mg p.o. x1. Patient will discharge home with a Rizvi catheter in place and a leg bag, and also given a prescription for Flomax and the antibiotics for UTI. Patient was given a referral to the urologist Dr. Felton for follow-up in the morning. Patient was otherwise advised to return to the ED immediately if symptoms get worse. - Differential Diagnosis Urinary retentions; UTI; BPH Critical care attestation.: If time is entered above; I have spent that time in minutes in the direct care of this critically ill patient, excluding procedure time. ED Disposition Clinical Impression: Acute urinary retention, Acute urinary tract infection Disposition: TO HOME OR SELFCARE Is pt being admited?: No Does the pt Need Aspirin: No Condition: Stable Instructions: Benign Prostatic Hypertrophy (ED), Urinary Tract Infection in Men (ED), Urinary Retention in Men (ED) Additional Instructions: Take medication with food, drink plenty of fluids and follow-up with your urologist as advised. Contact the office of Dr. Felton this morning for evaluation and follow up. Return to the ED immediately if symptoms get worse. Prescriptions: Tamsulosin [Flomax] 0.4 mg PO QDAY #30 cap levoFLOXacin [Levaquin TAB] 500 mg PO QDAY #10 tablet Ibuprofen [Motrin] 800 mg PO Q8HR PRN #20 tablet PRN Reason: Pain , Severe (7-10) Referrals: MEAGAN FELTON MD [Staff Physician] - 24 Hours Time of Disposition: 02:02 Print Language: HONDURAN
[2020-01-18 02:22] VITALS: BP 191/129
== END 2020-01-18 02:57 | disposition home or self-care (01) ==
LOC: ED 23:05
DX: N39.0 Urinary tract infection, site not specified (principal); R33.8 Other retention of urine; I10 Essential (primary) hypertension; E11.9 Type 2 diabetes mellitus without complications; J45.909 Unspecified asthma, uncomplicated; F17.200 Nicotine dependence, unspecified, uncomplicated; F12.90 Cannabis use, unspecified, uncomplicated; Z98.890 Other specified postprocedural states; Z79.899 Other long term (current) drug therapy
CPT/HCPCS: 51702; 81001; 87076; 87086; 87186

== ENCOUNTER 2020-01-18 12:09 | Emergency (ER) | payer SELFPAY ==
[2020-01-18 12:18] VITALS: BP 170/107
--- NOTE | 2020-01-18 12:57 | Emergency Department Report ---
ED General Adult HPI - General Chief complaint: Urogenital-Male Stated complaint: BLEEDING FROM CATHTER Time Seen by Provider: 01/18/20 12:44 Source: patient Mode of arrival: Ambulatory Limitations: No Limitations - History of Present Illness Initial comments: Patient is 64 years old male with history of benign prostatic hypertrophy. Patient was seen here last night and had a Rizvi catheter size 16 Italian inserted for acute urinary retention. Patient presented back to the emergency room stating that there is leakage around the Rizvi catheter. Patient denied any fever, chills, nausea or vomiting. - Related Data Home Medications Medication Instructions Recorded Confirmed Last Taken Tamsulosin HCl [Flomax] 0.4 mg PO DAILY 10/06/18 10/12/18 2 Weeks Ago ~09/28/18 amLODIPine [Norvasc] 10 mg PO PRN PRN 10/06/18 10/12/18 10/12/18 03:00 Previous Rx's Medication Instructions Recorded Last Taken Type Ibuprofen [Motrin] 800 mg PO Q8HR PRN #20 tablet 01/18/20 Unknown Rx Tamsulosin [Flomax] 0.4 mg PO QDAY #30 cap 01/18/20 Unknown Rx amLODIPine 10 mg PO DAILY #30 tab 01/18/20 Unknown Rx levoFLOXacin [Levaquin TAB] 500 mg PO QDAY #10 tablet 01/18/20 Unknown Rx Allergies Allergy/AdvReac Type Severity Reaction Status Date / Time No Known Allergies Allergy Verified 01/18/20 12:12 ED Review of Systems ROS: Stated complaint: BLEEDING FROM CATHTER Other details as noted in HPI Comment: All other systems reviewed and negative Constitutional: denies: chills, fever Respiratory: denies: cough, shortness of breath Cardiovascular: denies: chest pain, palpitations, dyspnea on exertion Genitourinary: dysuria, hematuria ED Past Medical Hx - Past Medical History Previous Medical History?: Yes Hx Hypertension: Yes Hx Congestive Heart Failure: No Hx Diabetes: Yes (NO MEDS) Hx Liver Disease: Yes (Hep C) Hx Asthma: Yes Hx COPD: No Hx HIV: No Additional medical history: HEPATITIS C, Enlarged prostate - Surgical History Past Surgical History?: Yes Hx Coronary Stent: No Additional Surgical History: enlarged prostate - Social History Smoking Status: Current Every Day Smoker Substance Use Type: Alcohol, Marijuana - Medications Home Medications: Home Medications Medication Instructions Recorded Confirmed Last Taken Type Tamsulosin HCl [Flomax] 0.4 mg PO DAILY 10/06/18 10/12/18 2 Weeks Ago History ~09/28/18 amLODIPine [Norvasc] 10 mg PO PRN PRN 10/06/18 10/12/18 10/12/18 03:00 History Ibuprofen [Motrin] 800 mg PO Q8HR PRN #20 tablet 01/18/20 Unknown Rx Tamsulosin [Flomax] 0.4 mg PO QDAY #30 cap 01/18/20 Unknown Rx amLODIPine 10 mg PO DAILY #30 tab 01/18/20 Unknown Rx levoFLOXacin [Levaquin TAB] 500 mg PO QDAY #10 tablet 01/18/20 Unknown Rx ED Physical Exam - General Limitations: No Limitations General appearance: alert, in no apparent distress - Head Head exam: Present: atraumatic, normocephalic, normal inspection - Eye Eye exam: Present: normal appearance - ENT ENT exam: Present: normal exam, mucous membranes moist - Respiratory Respiratory exam: Present: normal lung sounds bilaterally - Cardiovascular Cardiovascular Exam: Present: regular rate, normal rhythm, normal heart sounds - GI/Abdominal GI/Abdominal exam: Present: soft, normal bowel sounds. Absent: distended, tenderness, guarding, rebound, rigid - Extremities Exam Extremities exam: Present: normal inspection, full ROM, normal capillary refill. Absent: pedal edema, calf tenderness - Back Exam Back exam: Present: normal inspection, full ROM. Absent: CVA tenderness (R), CVA tenderness (L) - Neurological Exam Neurological exam: Present: alert, oriented X3, CN II-XII intact - Skin Skin exam: Present: warm, intact, normal color ED Course Vital Signs 01/18/20 12:16 Temperature 97.6 F Pulse Rate 91 H Respiratory 18 Rate Blood Pressure 170/107 O2 Sat by Pulse 99 Oximetry ED Medical Decision Making - Medical Decision Making Patient is 64 years old male with history of benign prostatic hypertrophy. Patient was seen here last night and had a Rizvi catheter size 16 Italian inserted for acute urinary retention. Patient presented back to the emergency room stating that there is leakage around the Rizvi catheter. Patient denied any fever, chills, nausea or vomiting. Rizvi catheter size change from 16-18. Patient tolerated procedure very well and there is no leakage after the procedure. Patient advised to continue his current medication and follow-up with the urologist. Critical care attestation.: If time is entered above; I have spent that time in minutes in the direct care of this critically ill patient, excluding procedure time. ED Disposition Clinical Impression: Acute urinary retention, Rizvi catheter problem Disposition: DC- TO HOME OR SELFCARE Is pt being admited?: No Condition: Stable Instructions: Rizvi Catheter Placement and Care (ED)
== END 2020-01-18 13:22 | disposition home or self-care (01) ==
LOC: ED 12:09
DX: T83.038A Leakage of other urinary catheter, initial encounter (principal); R33.9 Retention of urine, unspecified; I10 Essential (primary) hypertension; E11.9 Type 2 diabetes mellitus without complications; J45.909 Unspecified asthma, uncomplicated; F17.200 Nicotine dependence, unspecified, uncomplicated; F12.10 Cannabis abuse, uncomplicated; Z98.890 Other specified postprocedural states; Z79.2 Long term (current) use of antibiotics; Z79.899 Other long term (current) drug therapy; X58.XXXA Exposure to other specified factors, initial encounter
CPT/HCPCS: 51702

== ENCOUNTER 2020-02-18 06:10 | Emergency (ER) | payer SELFPAY ==
[2020-02-18 07:22] VITALS: BP 137/85
[2020-02-18 07:34] LABS: Bacteria,Urine 2+ /HPF (Negative); Bilirubin,Urine NEG (Negative); Blood,Urine SM (Negative); Color,Urine Straw (Yellow); Hyaline Casts,Urine 1 /LPF; Protein,Urine <15 mg/dL mg/dL (Negative); Urobilinogen,Urine < 2.0 mg/dL (<2.0)
--- NOTE | 2020-02-18 08:17 | Emergency Department Report ---
ED Male HPI - General Chief complaint: Abdominal Pain Stated complaint: ABD PAIN Time Seen by Provider: 02/18/20 07:37 Source: EMS Mode of arrival: Stretcher Limitations: Other - History of Present Illness Initial comments: 64-year-old male with a past medical history of BPH, hypertension, and previous urinary retention presents to the hospital complaining of inability to urinate. Patient was seen here yesterday expressing the same symptoms but was able to urinate in the ED. Patient has a history of BPH and has been noncompliant with his Flomax since running out several months ago. Yesterday he was diagnosed with UTI and received prescriptions for Bactrim, Flomax, amlodipine for his blood pressure. Patient has filled the medications. He states he received a dose of antibiotics in the ED and took his second dose at 10 and is due again this morning at 10 AM. Patient had 16 Mongolian coud catheter placed in the ED with relief of symptoms with bladder drainage. - Related Data Home Medications Medication Instructions Recorded Confirmed Last Taken Tamsulosin HCl [Flomax] 0.4 mg PO DAILY 10/06/18 10/12/18 2 Weeks Ago ~09/28/18 amLODIPine [Norvasc] 10 mg PO PRN PRN 10/06/18 10/12/18 10/12/18 03:00 Previous Rx's Medication Instructions Recorded Last Taken Type Ibuprofen [Motrin] 800 mg PO Q8HR PRN #20 tablet 01/18/20 Unknown Rx levoFLOXacin [Levaquin TAB] 500 mg PO QDAY #10 tablet 01/18/20 Unknown Rx Sulfamethoxazole/Trimethoprim 1 each PO BID #14 tablet 02/17/20 Unknown Rx [Bactrim DS TAB] Tamsulosin [Flomax] 0.4 mg PO QDAY #30 cap 02/17/20 Unknown Rx amLODIPine 10 mg PO DAILY #30 tab 02/17/20 Unknown Rx Allergies Allergy/AdvReac Type Severity Reaction Status Date / Time No Known Allergies Allergy Verified 01/18/20 12:12 ED Review of Systems ROS: Stated complaint: ABD PAIN Other details as noted in HPI Comment: All other systems reviewed and negative ED Past Medical Hx - Past Medical History Previous Medical History?: Yes Hx Hypertension: Yes Hx Congestive Heart Failure: No Hx Diabetes: Yes (NO MEDS) Hx Liver Disease: Yes (Hep C) Hx Asthma: Yes Hx COPD: No Hx HIV: No Additional medical history: HEPATITIS C, Enlarged prostate - Surgical History Past Surgical History?: No Hx Coronary Stent: No Additional Surgical History: enlarged prostate - Social History Smoking Status: Current Every Day Smoker Substance Use Type: Alcohol - Medications Home Medications: Home Medications Medication Instructions Recorded Confirmed Last Taken Type Tamsulosin HCl [Flomax] 0.4 mg PO DAILY 10/06/18 10/12/18 2 Weeks Ago History ~09/28/18 amLODIPine [Norvasc] 10 mg PO PRN PRN 10/06/18 10/12/18 10/12/18 03:00 History Ibuprofen [Motrin] 800 mg PO Q8HR PRN #20 tablet 01/18/20 Unknown Rx levoFLOXacin [Levaquin TAB] 500 mg PO QDAY #10 tablet 01/18/20 Unknown Rx Sulfamethoxazole/Trimethoprim 1 each PO BID #14 tablet 02/17/20 Unknown Rx [Bactrim DS TAB] Tamsulosin [Flomax] 0.4 mg PO QDAY #30 cap 02/17/20 Unknown Rx amLODIPine 10 mg PO DAILY #30 tab 02/17/20 Unknown Rx ED Physical Exam - General Limitations: Other - Other Other exam information: General: No acute distress Head: Atraumatic Eyes: normal appearance ENT: Moist mucous membranes Neck: Normal appearance, no midline tenderness Chest: Clear to auscultation bilaterally CV: Regular rate and rhythm Abdomen: Soft, normal bowel sounds, suprapubic tenderness, nondistended, no rebound or guarding : gomez cath in place with urine drainage Back: Normal inspection Extremity: Normal inspection, full range of motion Neuro: Alert O x 3, no facial asymmetry, speech clear, no gross motor sensory deficit Psych: Appropriate behavior Skin: No rash ED Course Vital Signs 02/18/20 02/18/20 06:33 07:19 Temperature 98 F Pulse Rate 140 H 83 Respiratory 22 16 Rate Blood Pressure 173/101 137/85 [Right] O2 Sat by Pulse 97 98 Oximetry ED Medical Decision Making - Lab Data Lab Results 02/18/20 Range/Units Unknown Urine Color Straw (Yellow) Urine Turbidity Clear (Clear) Urine pH 7.0 (5.0-7.0) Ur Specific [place] 1.009 (1.003-1.030) Urine Protein <15 mg/dl (Negative) mg/dL Urine Glucose (UA) Neg (Negative) mg/dL Urine Ketones Neg (Negative) mg/dL Urine Blood Sm (Negative) Urine Nitrite Neg (Negative) Urine Bilirubin Neg (Negative) Urine Urobilinogen < 2.0 (<2.0) mg/dL Ur Leukocyte Esterase Sm (Negative) Urine WBC (Auto) 10.0 H (0.0-6.0) /HPF Urine RBC (Auto) 14.0 (0.0-6.0) /HPF U Epithel Cells (Auto) < 1.0 (0-13.0) /HPF Urine Bacteria (Auto) 2+ (Negative) /HPF Hyaline Casts 1 /LPF - Medical Decision Making Patient presented with hypotension, tachycardia, and acute urinary retention. Vital signs improved with decompression of urinary bladder after Gomez catheter placement.I noted almost 800 mL output prior to d/c. patient is taking his recently prescribed medication and plans toto go to the urology office upon discharge to schedule follow-up. Gomez leg bag placed Critical Care Time: No Critical care attestation.: If time is entered above; I have spent that time in minutes in the direct care of this critically ill patient, excluding procedure time. ED Disposition Clinical Impression: Urinary retention, History of BPH, UTI (urinary tract infection) Disposition: - TO HOME OR SELFCARE Is pt being admited?: No Does the pt Need Aspirin: No Condition: Stable Instructions: Benign Prostatic Hypertrophy (ED), Gomez Catheter Placement and Care (ED), Urinary Retention in Men (ED) Additional Instructions: Continue your current medication as prescribed. Follow-up with your doctor or doctor/clinic provided. Return if symptoms worsen as indicated by your discharge instructions. Referrals: CAROLINE OLIVER MD [Staff Physician] - 3-5 Days Time of Disposition: 08:20
== END 2020-02-18 08:41 | disposition home or self-care (01) ==
LOC: ED 06:10
DX: N39.0 Urinary tract infection, site not specified (principal); R33.9 Retention of urine, unspecified; I10 Essential (primary) hypertension; E11.9 Type 2 diabetes mellitus without complications; J45.909 Unspecified asthma, uncomplicated; F17.200 Nicotine dependence, unspecified, uncomplicated; Z98.890 Other specified postprocedural states; Z79.899 Other long term (current) drug therapy; Z87.438 Personal history of other diseases of male genital organs
CPT/HCPCS: 51702; 81001; 87076; 87086; 87186

== ENCOUNTER 2020-03-04 14:15 | Emergency (ER) | payer SELFPAY ==
[2020-03-04 14:37] VITALS: BP 149/83
[2020-03-04 15:24] LABS: Basophils # (Auto) 0.1 K/mm3 (0.0-0.1); Basophils % (Auto) 1.2 % (0.0-1.8); Eosinophils # (Auto) 0.1 K/mm3 (0.0-0.4); Eosinophils % (Auto) 1.9 % (0.0-4.3); Hematocrit 43.7 % (35.5-45.6); Hemoglobin 14.8 gm/dl (11.8-15.2); Lymphocytes # (Auto) 2.6 K/mm3 (1.2-5.4); Lymphocytes % (Auto) 37.4 % (13.4-35.0); Mean Corpuscular HGB Conc 34 % (32-34); Mean Corpuscular Volume 91 fl (84-94); Monocytes # (Auto) 0.8 K/mm3 (0.0-0.8); Monocytes % (Auto) 12.4 % (0.0-7.3); Platelet Count 167 K/mm3 (140-440); Red Blood Count 4.83 M/mm3 (3.65-5.03); Red Cell Distribution Width 13.4 % (13.2-15.2)
[2020-03-04 15:45] LABS: Alanine Aminotransferase 58 units/L (7-56); Albumin 3.8 g/dL (3.9-5); BUN/Creatinine Ratio 20; Blood Urea Nitrogen 16 mg/dL (9-20); Calcium 9.2 mg/dL (8.4-10.2); Hemolysis Index 6
[2020-03-04 15:57] LABS: Bilirubin,Direct < 0.2 mg/dL (0-0.2)
--- NOTE | 2020-03-04 17:49 | Emergency Department Report ---
ED Male HPI - General Chief complaint: Urogenital-Male Stated complaint: CAN'T USE THE BATHROOM Time Seen by Provider: 03/04/20 14:39 Source: patient Mode of arrival: Ambulatory Limitations: No Limitations - History of Present Illness Initial comments: Patient is 65 years old male with history of BPH. Patient presented to the ER with acute urinary retention. Patient stated that he is unable to pass urine the whole morning and is complaining of suprapubic fullness and tenderness. Patient denied any fever or chills. Patient stated that he has been followed by Dr. Garrett and they removed his Rizvi catheter 1 week ago. Complaint: other (Urine retention) - Related Data Home Medications Medication Instructions Recorded Confirmed Last Taken Tamsulosin HCl [Flomax] 0.4 mg PO DAILY 10/06/18 10/12/18 2 Weeks Ago ~09/28/18 amLODIPine [Norvasc] 10 mg PO PRN PRN 10/06/18 10/12/18 10/12/18 03:00 Previous Rx's Medication Instructions Recorded Last Taken Type Ibuprofen [Motrin] 800 mg PO Q8HR PRN #20 tablet 01/18/20 Unknown Rx levoFLOXacin [Levaquin TAB] 500 mg PO QDAY #10 tablet 01/18/20 Unknown Rx Sulfamethoxazole/Trimethoprim 1 each PO BID #14 tablet 02/17/20 Unknown Rx [Bactrim DS TAB] Tamsulosin [Flomax] 0.4 mg PO QDAY #30 cap 02/17/20 Unknown Rx amLODIPine 10 mg PO DAILY #30 tab 02/17/20 Unknown Rx Ciprofloxacin HCl [Ciprofloxacin 500 mg PO Q12HR #20 tab 03/04/20 Unknown Rx TAB] Allergies Allergy/AdvReac Type Severity Reaction Status Date / Time No Known Allergies Allergy Verified 01/18/20 12:12 ED Review of Systems ROS: Stated complaint: CAN'T USE THE BATHROOM Other details as noted in HPI Comment: All other systems reviewed and negative Constitutional: denies: chills, fever Respiratory: denies: cough, shortness of breath, SOB with exertion Cardiovascular: denies: chest pain, palpitations Gastrointestinal: abdominal pain. denies: nausea, vomiting, diarrhea, constipation, hematemesis, melena, hematochezia Musculoskeletal: denies: back pain Neurological: denies: headache, weakness, numbness, paresthesias, confusion ED Past Medical Hx - Past Medical History Previous Medical History?: Yes Hx Hypertension: Yes Hx Congestive Heart Failure: No Hx Diabetes: Yes (NO MEDS) Hx Liver Disease: Yes (Hep C) Hx Asthma: Yes Hx COPD: No Hx HIV: No Additional medical history: HEPATITIS C, Enlarged prostate - Surgical History Past Surgical History?: Yes Hx Coronary Stent: No Additional Surgical History: enlarged prostate - Social History Smoking Status: Current Every Day Smoker Substance Use Type: Alcohol - Medications Home Medications: Home Medications Medication Instructions Recorded Confirmed Last Taken Type Tamsulosin HCl [Flomax] 0.4 mg PO DAILY 10/06/18 10/12/18 2 Weeks Ago History ~09/28/18 amLODIPine [Norvasc] 10 mg PO PRN PRN 10/06/18 10/12/18 10/12/18 03:00 History Ibuprofen [Motrin] 800 mg PO Q8HR PRN #20 tablet 01/18/20 Unknown Rx levoFLOXacin [Levaquin TAB] 500 mg PO QDAY #10 tablet 01/18/20 Unknown Rx Sulfamethoxazole/Trimethoprim 1 each PO BID #14 tablet 02/17/20 Unknown Rx [Bactrim DS TAB] Tamsulosin [Flomax] 0.4 mg PO QDAY #30 cap 02/17/20 Unknown Rx amLODIPine 10 mg PO DAILY #30 tab 02/17/20 Unknown Rx Ciprofloxacin HCl [Ciprofloxacin 500 mg PO Q12HR #20 tab 03/04/20 Unknown Rx TAB] ED Physical Exam - General Limitations: No Limitations General appearance: alert, in distress - Head Head exam: Present: atraumatic, normocephalic, normal inspection - Eye Eye exam: Present: normal appearance, PERRL - ENT ENT exam: Present: normal exam, normal orophraynx, mucous membranes moist - Neck Neck exam: Present: normal inspection, full ROM. Absent: tenderness, meningismus, lymphadenopathy, thyromegaly - Respiratory Respiratory exam: Present: normal lung sounds bilaterally - Cardiovascular Cardiovascular Exam: Present: regular rate, normal rhythm, normal heart sounds - GI/Abdominal GI/Abdominal exam: Present: soft, distended (Suprapubic), tenderness (Suprapubic), normal bowel sounds. Absent: guarding, rebound, rigid, mass, bruit, pulsatile mass, hernia - Extremities Exam Extremities exam: Present: normal inspection, full ROM, normal capillary refill. Absent: pedal edema, calf tenderness - Back Exam Back exam: Present: normal inspection, full ROM. Absent: CVA tenderness (R), CVA tenderness (L) - Neurological Exam Neurological exam: Present: alert, oriented X3, CN II-XII intact, normal gait, reflexes normal. Absent: motor sensory deficit - Psychiatric Psychiatric exam: Present: normal mood - Skin Skin exam: Present: warm, intact, normal color ED Course Vital Signs 03/04/20 14:33 Temperature 97.5 F L Pulse Rate 84 Respiratory 18 Rate Blood Pressure 149/83 O2 Sat by Pulse 100 Oximetry ED Medical Decision Making - Lab Data Result diagrams: 03/04/20 14:56 03/04/20 14:56 - Medical Decision Making Patient is 65 years old male with history of BPH. Patient presented to the ER with acute urinary retention. Patient stated that he is unable to pass urine the whole morning and is complaining of suprapubic fullness and tenderness. Patient denied any fever or chills. Patient stated that he has been followed by Dr. Garrett and they removed his Rizvi catheter 1 week ago. Rizvi catheter placed in the emergency room is immediate relief with a urine output of more than 1 L. Labs reviewed and is unremarkable except for UTI. Patient started on ciprofloxacin and advised to follow-up with Dr. Garrett in the next 2 to 3 days. Patient also advised to return to the ER if he develop any new symptoms. Critical care attestation.: If time is entered above; I have spent that time in minutes in the direct care of this critically ill patient, excluding procedure time. ED Disposition Clinical Impression: Acute urinary retention, UTI (urinary tract infection) Disposition: - TO HOME OR SELFCARE Is pt being admited?: No Condition: Stable Instructions: Urinary Retention in Men (ED), Rizvi Catheter Placement and Care (ED), Urinary Tract Infection in Men (ED) Prescriptions: Ciprofloxacin HCl [Ciprofloxacin TAB] 500 mg PO Q12HR #20 tab Referrals: CAROLINE GARRETT MD [Staff Physician] - 3-5 Days
[2020-03-04 18:42] LABS: Bacteria,Urine 2+ /HPF (Negative); Bilirubin,Urine NEG (Negative); Blood,Urine MOD (Negative); Color,Urine Yellow (Yellow); Mucus,Urine FEW /HPF; Protein,Urine <15 mg/dL mg/dL (Negative); Urobilinogen,Urine < 2.0 mg/dL (<2.0)
== END 2020-03-04 19:25 | disposition home or self-care (01) ==
LOC: ED 14:15
DX: N39.0 Urinary tract infection, site not specified (principal); R33.8 Other retention of urine; I10 Essential (primary) hypertension; E11.9 Type 2 diabetes mellitus without complications; J45.909 Unspecified asthma, uncomplicated; F17.200 Nicotine dependence, unspecified, uncomplicated; Z79.899 Other long term (current) drug therapy
CPT/HCPCS: 36415; 80048; 80076; 81001; 85025; 87076; 87086; 87186; 99283

== ENCOUNTER 2020-10-12 00:01 | Emergency (ER) | payer SELFPAY ==
[2020-10-12] MEDS ORDERED: LIDOCAINE VISCOUS 2% 15 ML ORAL LIQD PO ONE (00:32)
--- NOTE | 2020-10-12 00:36 | Emergency Department Report ---
ED General Adult HPI - General Chief complaint: Urogenital-Male Stated complaint: URINARY RETENTION/ENLARGE PROSTATE/ABD PAIN PUI?: No Time Seen by Provider: 10/12/20 00:30 Source: patient, EMS ( EMS documentation not available at time of chart dictation ), RN notes reviewed, old records reviewed Mode of arrival: Ambulatory Limitations: No Limitations - History of Present Illness Initial comments: The patient was evaluated in the emergency department for symptoms described in the history of present illness. He/she was evaluated in the context of the global COVID-19 pandemic, which necessitated consideration that the patient might be at risk for infection with the virus that causes COVID-19. Institutional protocols and algorithms that pertain to the evaluation of patients at risk for COVID-19 are in a state of rapid change based on information released by regulatory bodies including the CDC and federal and state organizations. These policies and algorithms were followed during the patient's care in the emergency department. Please note that these policies, procedures and recommendations changed on a rapid basis. Mr. Hernández is a 65-year-old gentleman who is known to myself, with a history of presumed BPH, and urinary retention. He typically follows at [facility] for his urinary retention. Patient reports that he had an indwelling Rizvi catheter, in place for approximately 1 month, and was seen at [facility] yesterday, October 11, 10:00 AM, for a routine follow-up appointment. He reports that his Rizvi catheter was removed, and he successfully passed a trial of void, and was discharged without a Rizvi catheter. He then presented to this emergency room with a complaint of acute urinary retention. He denies all additional injuries and complaints. His symptoms were completely relieved with placement of a Rizvi catheter. He currently has a Rizvi catheter in place, draining clear yellow urine, denies fever, chills, nausea, vomiting, diarrhea, loss of taste and smell, he is currently texting and playing on his cellular phone, and is asking to be discharged. He reports that he has follow-up with [facility] next week, on Friday. -: Sudden Consistency: now resolved Improves with: other (Placement of a Rizvi cath) - Related Data Home Medications Medication Instructions Recorded Confirmed Last Taken Tamsulosin HCl [Flomax] 0.4 mg PO DAILY 10/06/18 10/12/18 2 Weeks Ago ~09/28/18 amLODIPine [Norvasc] 10 mg PO PRN PRN 10/06/18 10/12/18 10/12/18 03:00 Previous Rx's Medication Instructions Recorded Last Taken Type Ibuprofen [Motrin] 800 mg PO Q8HR PRN #20 tablet 01/18/20 Unknown Rx levoFLOXacin [Levaquin TAB] 500 mg PO QDAY #10 tablet 01/18/20 Unknown Rx Sulfamethoxazole/Trimethoprim 1 each PO BID #14 tablet 02/17/20 Unknown Rx [Bactrim DS TAB] Tamsulosin [Flomax] 0.4 mg PO QDAY #30 cap 02/17/20 Unknown Rx amLODIPine 10 mg PO DAILY #30 tab 02/17/20 Unknown Rx Ciprofloxacin HCl [Ciprofloxacin 500 mg PO Q12HR #20 tab 03/04/20 Unknown Rx TAB] Ciprofloxacin HCl [Ciprofloxacin 500 mg PO Q12HR #14 tab 03/19/20 Unknown Rx TAB] Tamsulosin [Flomax] 0.4 mg PO QDAY #30 cap 03/19/20 Unknown Rx Nitrofurantoin [place]/M-Cryst 100 mg PO Q12HR #20 capsule 03/25/20 Unknown Rx [Macrobid CAP] amLODIPine 5 mg PO DAILY #30 tab 03/25/20 Unknown Rx Allergies Allergy/AdvReac Type Severity Reaction Status Date / Time No Known Allergies Allergy Verified 01/18/20 12:12 ED Review of Systems ROS: Stated complaint: URINARY RETENTION/ENLARGE PROSTATE/ABD PAIN Other details as noted in HPI Constitutional: denies: fever Respiratory: denies: cough, shortness of breath Cardiovascular: denies: chest pain Gastrointestinal: abdominal pain (Suprapubic abdominal pain). denies: nausea, vomiting Genitourinary: as per HPI, other (Urinary retention). denies: testicular pain Musculoskeletal: denies: back pain Neurological: denies: weakness Psychiatric: anxiety ED Past Medical Hx - Past Medical History Previous Medical History?: Yes Hx Hypertension: Yes Hx Congestive Heart Failure: No Hx Diabetes: Yes (NO MEDS) Hx Liver Disease: Yes (Hep C) Hx Asthma: Yes Hx COPD: No Hx HIV: No Additional medical history: HEPATITIS C, Enlarged prostate - Surgical History Past Surgical History?: Yes Hx Coronary Stent: No Additional Surgical History: enlarged prostate - Social History Smoking Status: Current Every Day Smoker Substance Use Type: Marijuana - Medications Home Medications: Home Medications Medication Instructions Recorded Confirmed Last Taken Type Tamsulosin HCl [Flomax] 0.4 mg PO DAILY 10/06/18 10/12/18 2 Weeks Ago History ~09/28/18 amLODIPine [Norvasc] 10 mg PO PRN PRN 10/06/18 10/12/18 10/12/18 03:00 History Ibuprofen [Motrin] 800 mg PO Q8HR PRN #20 tablet 01/18/20 Unknown Rx levoFLOXacin [Levaquin TAB] 500 mg PO QDAY #10 tablet 01/18/20 Unknown Rx Sulfamethoxazole/Trimethoprim 1 each PO BID #14 tablet 02/17/20 Unknown Rx [Bactrim DS TAB] Tamsulosin [Flomax] 0.4 mg PO QDAY #30 cap 02/17/20 Unknown Rx amLODIPine 10 mg PO DAILY #30 tab 02/17/20 Unknown Rx Ciprofloxacin HCl [Ciprofloxacin 500 mg PO Q12HR #20 tab 03/04/20 Unknown Rx TAB] Ciprofloxacin HCl [Ciprofloxacin 500 mg PO Q12HR #14 tab 03/19/20 Unknown Rx TAB] Tamsulosin [Flomax] 0.4 mg PO QDAY #30 cap 03/19/20 Unknown Rx Nitrofurantoin [place]/M-Cryst 100 mg PO Q12HR #20 capsule 03/25/20 Unknown Rx [Macrobid CAP] amLODIPine 5 mg PO DAILY #30 tab 03/25/20 Unknown Rx ED Physical Exam - General Limitations: No Limitations General appearance: alert, anxious, in distress, obese - Head Head exam: Present: atraumatic, normocephalic - Eye Eye exam: Present: normal appearance, EOMI. Absent: nystagmus - ENT ENT exam: Present: normal exam, normal orophraynx, mucous membranes moist, normal external ear exam - Neck Neck exam: Present: normal inspection, full ROM. Absent: tenderness, meningismus - Respiratory Respiratory exam: Present: normal lung sounds bilaterally. Absent: respiratory distress, wheezes, rales, rhonchi, stridor, decreased breath sounds - Cardiovascular Cardiovascular Exam: Present: normal rhythm, tachycardia, normal heart sounds. Absent: bradycardia, irregular rhythm, systolic murmur, diastolic murmur, rubs, gallop - GI/Abdominal GI/Abdominal exam: Present: soft, distended (Suprapubic distention). Absent: tenderness, guarding, rebound, rigid, pulsatile mass - Rectal Rectal exam: Present: deferred - exam: Present: normal inspection External exam: Present: normal external exam, other (Chaperoned by nurse James Weinstein) - Extremities Exam Extremities exam: Present: normal inspection, full ROM - Back Exam Back exam: Present: normal inspection, full ROM. Absent: tenderness, CVA tenderness (R), CVA tenderness (L), paraspinal tenderness, vertebral tenderness - Neurological Exam Neurological exam: Present: alert, normal gait, other (No facial droop. Tongue midline. Extraocular movements intact bilaterally. Facial sensation intact to light touch in V1, V2, V3 distribution bilaterally. 5 and a 5 strength in 4 e xtremities. Sensation intact to light touch in 4 extremities.). Absent: motor sensory deficit - Psychiatric Psychiatric exam: Present: anxious - Skin Skin exam: Present: warm, dry, intact, normal color. Absent: rash ED Course Vital Signs 10/12/20 10/12/20 00:15 02:15 Temperature 97.4 F L Pulse Rate 114 H 83 Respiratory 17 17 Rate Blood Pressure 145/113 Blood Pressure 143/74 [Left] O2 Sat by Pulse 97 99 Oximetry - Reevaluation(s) Reevaluation #1: 10/13/20 10:21 Urinalysis is reviewed and appreciated. This is consistent with the patient's prior urinalyses, his 2 most recent cultures have been negative, and he did not endorse any dysuria, frequency to myself. He is most likely chronically colonized. He also has follow-up with his urologist in a few days. Cultures are pending at this institution. ED Medical Decision Making - Lab Data Vital Signs 10/12/20 00:15 Temperature 97.4 F L Pulse Rate 114 H Respiratory 17 Rate Blood Pressure 145/113 O2 Sat by Pulse 97 Oximetry Vital Signs 10/12/20 10/12/20 00:15 02:15 Temperature 97.4 F L Pulse Rate 114 H 83 Respiratory 17 17 Rate Blood Pressure 145/113 Blood Pressure 143/74 [Left] O2 Sat by Pulse 97 99 Oximetry Lab Results 10/12/20 Range/Units Unknown Urine Color Yellow (Yellow) Urine Turbidity Cloudy (Clear) Urine pH 8.0 H (5.0-7.0) Ur Specific [place] 1.009 (1.003-1.030) Urine Protein 30 mg/dl (Negative) mg/dL Urine Glucose (UA) Neg (Negative) mg/dL Urine Ketones Neg (Negative) mg/dL Urine Blood Lg (Negative) Urine Nitrite Pos (Negative) Urine Bilirubin Neg (Negative) Urine Urobilinogen < 2.0 (<2.0) mg/dL Ur Leukocyte Esterase Lg (Negative) Urine WBC (Auto) 39.0 H (0.0-6.0) /HPF Urine RBC (Auto) 122.0 (0.0-6.0) /HPF U Epithel Cells (Auto) < 1.0 (0-13.0) /HPF Urine Bacteria (Auto) 1+ (Negative) /HPF Urine WBC Clumps 2+ /HPF Urine Mucus Few /HPF - Medical Decision Making Differential diagnosis, including but not limited to: Urinary retention, BPH Assessment and plan: 65-year-old gentleman with presenting complaint of acute urinary retention, after Rizvi catheter was removed yesterday, by his outpatient providers office, and having successfully passed a trial of void. His symptoms are now resolved with placement of a Rizvi catheter. His tachycardia is resolved on repeat examination. He is playing on his cellular phone, in no acute distress, asking to be discharged, and reports having close outpatient follow-up next week. Patient will be discharged, Rizvi catheter to leg bag, outpatient urology follow-up, return precautions are reviewed. Critical care attestation.: If time is entered above; I have spent that time in minutes in the direct care of this critically ill patient, excluding procedure time. ED Disposition Clinical Impression: Urinary retention Disposition: DC-01 TO HOME OR SELFCARE Is pt being admited?: No Does the pt Need Aspirin: No Condition: Good Instructions: Acute Urinary Retention, Male, [id number] Additional Instructions: Please keep the Rizvi catheter in place. Please follow-up with a urologist within the next week. Cultures were sent today, and results will be available in the next 3 to 5 days. Please have a primary care doctor or urologist contact the medical records department to obtain culture results. Please return to the emergency room right away with new pain, worsened pain, migration of pain, projectile vomiting, change in mental status, confusion, inability to tolerate liquid feeds, recurrent urinary retention, testicular pain, or any new, worsened or different symptoms not present on the initial emergency room evaluation. Referrals: [facility] [Provider Group] - 3-5 Days
[2020-10-12 01:52] LABS: Bacteria,Urine 1+ /HPF (Negative); Bilirubin,Urine NEG (Negative); Blood,Urine LG (Negative); Color,Urine Yellow (Yellow); Mucus,Urine FEW /HPF; Urobilinogen,Urine < 2.0 mg/dL (<2.0)
[2020-10-12 02:41] VITALS: BP 143/74
== END 2020-10-12 02:15 | disposition home or self-care (01) ==
LOC: ED 00:01
DX: R33.9 Retention of urine, unspecified (principal); I10 Essential (primary) hypertension; E11.9 Type 2 diabetes mellitus without complications; J45.909 Unspecified asthma, uncomplicated; F17.200 Nicotine dependence, unspecified, uncomplicated; F12.10 Cannabis abuse, uncomplicated; Z79.899 Other long term (current) drug therapy
CPT/HCPCS: 51702; 81001; 87086; 99283

== ENCOUNTER 2021-07-15 17:26 | Emergency (ER) | payer SELFPAY ==
[2021-07-15] MEDS ORDERED: IBUPROFEN 800 MG TAB PO ONE (21:38)
--- NOTE | 2021-07-15 21:43 | Emergency Department Report ---
ED General Adult HPI - General Chief complaint: Back Pain/Injury Stated complaint: BACK PAIN Time Seen by Provider: 07/15/21 21:06 Source: patient Mode of arrival: Ambulatory Limitations: No Limitations - History of Present Illness Initial comments: 66-year-old male presents to ED with complaint of right shoulder pain. Patient states he was reaching up high for something with his right arm and felt like he pulled a muscle around his shoulder blade. Patient has pain along the back of the shoulder with lifting of the right arm. Patient denies any weakness or numbness of the arm. Patient also states that he noticed some blood in his stool yesterday. Patient states it was bright red and jellylike. Patient states it was around the stool, not within the stool. Patient reports a history of hemorrhoids. He denies any painful bowel movements currently. -: days(s) (1) Location: right, upper extremity Radiation: non-radiation Quality: aching Consistency: intermittent Improves with: immobilization Worsens with: movement Associated Symptoms: denies other symptoms. denies: fever/chills, nausea/vomiting, weakness - Related Data Previous Rx's Medication Instructions Recorded Last Taken Type Tamsulosin [Flomax] 0.4 mg PO QDAY #30 cap 03/19/20 Unknown Rx amLODIPine 5 mg PO DAILY #30 tab 03/25/20 Unknown Rx methOCARBAMOL [Robaxin TAB] 500 mg PO Q8HR PRN #20 tablet 07/15/21 Unknown Rx Allergies Allergy/AdvReac Type Severity Reaction Status Date / Time No Known Allergies Allergy Verified 01/18/20 12:12 ED Review of Systems ROS: Stated complaint: BACK PAIN Other details as noted in HPI Comment: All other systems reviewed and negative Constitutional: denies: fever Gastrointestinal: hematochezia. denies: abdominal pain Musculoskeletal: as per HPI Neurological: denies: weakness, numbness ED Past Medical Hx - Past Medical History Previous Medical History?: Yes Hx Hypertension: Yes Hx Congestive Heart Failure: No Hx Diabetes: Yes (NO MEDS) Hx Liver Disease: Yes (Hep C) Hx Asthma: Yes Hx COPD: No Hx HIV: No Additional medical history: HEPATITIS C, Enlarged prostate - Surgical History Past Surgical History?: Yes Hx Coronary Stent: No Additional Surgical History: enlarged prostate - Social History Smoking Status: Unknown if ever smoked - Medications Home Medications: Home Medications Medication Instructions Recorded Confirmed Last Taken Type Tamsulosin [Flomax] 0.4 mg PO QDAY #30 cap 03/19/20 Unknown Rx amLODIPine 5 mg PO DAILY #30 tab 03/25/20 Unknown Rx methOCARBAMOL [Robaxin TAB] 500 mg PO Q8HR PRN #20 tablet 07/15/21 Unknown Rx ED Physical Exam - General Limitations: No Limitations General appearance: alert, in no apparent distress - Head Head exam: Present: atraumatic, normocephalic - Eye Eye exam: Present: normal appearance, EOMI - ENT ENT exam: Present: mucous membranes moist - Neck Neck exam: Present: normal inspection - Respiratory Respiratory exam: Present: normal lung sounds bilaterally. Absent: respiratory distress - Cardiovascular Cardiovascular Exam: Present: normal rhythm, bradycardia - GI/Abdominal GI/Abdominal exam: Present: soft. Absent: distended, tenderness - Extremities Exam Extremities exam: Present: normal inspection, tenderness (Along the superior medial aspect of the right scapula; decreased abduction of the right shoulder secondary to pain) - Neurological Exam Neurological exam: Present: alert, oriented X3. Absent: motor sensory deficit - Psychiatric Psychiatric exam: Present: normal affect, normal mood - Skin Skin exam: Present: warm, dry, intact, normal color ED Course Vital Signs 07/15/21 07/15/21 17:29 23:06 Temperature 98.1 F Pulse Rate 50 L 80 Respiratory 16 14 Rate Blood Pressure 142/68 140/80 [Right] O2 Sat by Pulse 99 98 Oximetry ED Medical Decision Making - Lab Data Result diagrams: 07/15/21 21:41 - Medical Decision Making 66-year-old male, likely with posterior shoulder strain after reaching for something. Pain worse with movement of the right arm. No deformities noted. Patient also reporting one episode of rectal bleeding, history of hemorrhoids. Vital signs are stable. Hemoglobin is normal. Patient will be discharged at this time. Outpatient follow-up with GI advised, return precautions given. - Differential Diagnosis Muscle strain, hemorrhoids, malignancy Critical care attestation.: If time is entered above; I have spent that time in minutes in the direct care of this critically ill patient, excluding procedure time. ED Disposition Clinical Impression: Rectal bleeding, Right shoulder strain Disposition: 01 HOME / SELF CARE / HOMELESS Is pt being admited?: No Condition: Stable Instructions: Muscle Strain, Rectal Bleeding, [id number] Prescriptions: methOCARBAMOL [Robaxin TAB] 500 mg PO Q8HR PRN #20 tablet PRN Reason: Muscle Spasm Referrals: [facility] [Provider Group] - 3-5 Days [facility] [Provider Group] - 3-5 Days [facility], [Primary Care Provider] - 3-5 Days Time of Disposition: 22:16
[2021-07-15 21:57] LABS: Basophils # (Auto) 0.1 K/mm3 (0.0-0.1); Basophils % (Auto) 0.5 % (0.0-1.8); Eosinophils # (Auto) 0.2 K/mm3 (0.0-0.4); Eosinophils % (Auto) 1.6 % (0.0-4.3); Hematocrit 49.2 % (35.5-45.6); Hemoglobin 15.9 gm/dl (11.8-15.2); Lymphocytes # (Auto) 2.1 K/mm3 (1.2-5.4); Mean Corpuscular HGB Conc 32 % (32-34); Mean Corpuscular Volume 90 fl (84-94); Monocytes % (Auto) 9.9 % (0.0-7.3); Platelet Count 230 K/mm3 (140-440); Red Blood Count 5.45 M/mm3 (3.65-5.03); Red Cell Distribution Width 13.8 % (13.2-15.2)
[2021-07-15 23:07] VITALS: BP 140/80
== END 2021-07-15 23:07 | disposition home or self-care (01) ==
LOC: ED 17:26
DX: S46.911A Strain of unspecified muscle, fascia and tendon at shoulder and upper arm level, right arm, initial encounter (principal); I10 Essential (primary) hypertension; K62.5 Hemorrhage of anus and rectum; E11.9 Type 2 diabetes mellitus without complications; J45.909 Unspecified asthma, uncomplicated; X58.XXXA Exposure to other specified factors, initial encounter; Y93.89 Activity, other specified; Y92.89 Other specified places as the place of occurrence of the external cause; Y99.8 Other external cause status
CPT/HCPCS: 36415; 85025; 99283